=== PATIENT | female | born 1930 | race Caucasian/White ===

== ENCOUNTER → 2016-07-11 | Outpatient (REF) | payer MEDICARE, OTHER ==
[~2016-07-11] MED LIST: /AUGM875TA OR; ACET65TA; ACET65TA OR; AMBI5TAB OR; AMLO5TAB PO; ASCO25TA PO; ASPI1TAB PO; ASPI325T OR; ASPI81TA3; ASPIRIN; BENICAR PO; CIPR250T3; COLA100C PO; FLAG500T OR; FURO20TA2 OR; LEVO200T6 OR; LISI10TA4 PO; METOPROLOL TARTRATE PO; NAPR250T OR; NORCO PO; NORV5TAB OR; OMEP20TA PO; PERCOCET PO; PLAV75TA2 OR; PRIL20CA; ROBITUSSIN PO; SIMV20TA2 OR; SIMV40TA2 PO; SYNT175T PO
== END ==
LOC: M LAB REF 12:21
PROVIDERS: ATTEND Family Medicine
DX: E83.51 Hypocalcemia (principal)

== ENCOUNTER → 2016-08-15 | Outpatient (REF) | payer MEDICARE, OTHER | LOC: M LAB REF 16:24 | DX: N39.0 Urinary tract infection, site not specified (principal) ==

== ENCOUNTER → 2017-04-07 | Outpatient (REF) | payer MEDICARE, OTHER ==
[~2017-04-07] MED LIST changes: -COLA100C PO; +COLA100C5 PO
== END ==
LOC: M LAB REF 12:04
PROVIDERS: ATTEND Family Medicine
DX: E21.2 Other hyperparathyroidism (principal)

== ENCOUNTER → 2017-05-19 | Outpatient (REF) | payer MEDICARE, OTHER | LOC: M LAB REF 17:42 | PROVIDERS: ATTEND Family Medicine | DX: E21.2 Other hyperparathyroidism (principal) ==

== ENCOUNTER → 2017-06-07 | Outpatient (REF) | payer MEDICARE, OTHER | LOC: M LAB REF 17:41 | PROVIDERS: ATTEND Physician Assistant | DX: R30.0 Dysuria (principal) ==

== ENCOUNTER 2017-07-06 16:06 | Inpatient (IN) | payer MEDICARE, OTHER ==
[2017-07-06] MEDS: NS 500 ML IV (17:15)
[2017-07-06] MEDS: ONDANSETRON 4MG/2ML VIAL (J2405) IV (17:15)
[2017-07-06 17:27] LABS: BASO % 0.1 % (0.0-1.0); EOS % 0.3 % (0.0-3.0); HEMATOCRIT 45.8 % (36.0-47.0); HEMOGLOBIN 14.8 g/dl (12.0-16.0); IMMATURE GRANULOCYTE % 0.1 % (0-0); LYMPH # 1.4 10^3/uL (1.5-4.5); LYMPH % 18.6 % (24.0-44.0); MEAN CORPUSCULAR HEMOGLOBIN 30.1 pg (27.0-33.0); MEAN CORPUSCULAR HGB CONC 32.3 g/dl (32.0-36.5); MEAN CORPUSCULAR VOLUME 93.3 fl (80.0-96.0); MONO # 0.5 10^3/uL (0.0-0.8); NEUTROPHILS # 5.5 10^3/uL (1.8-7.7); NEUTROPHILS % 73.9 % (36.0-66.0); PLATELET COUNT, AUTOMATED 267 10^3/uL (150-450); RED BLOOD COUNT 4.91 10^6/uL (4.00-5.40); RED CELL DISTRIBUTION WIDTH 13.6 % (11.5-14.5); WHITE BLOOD COUNT 7.4 10^3/uL (4.0-10.0)
[2017-07-06 17:35] LABS: ALBUMIN 3.8 GM/DL (3.2-5.2); ALBUMIN/GLOBULIN RATIO 0.86 (1.00-1.93); ALKALINE PHOSPHATASE 121 U/L (45-117); ALT/SGPT 16 U/L (12-78); ANION GAP 11 MEQ/L (8-16); AST/SGOT 30 U/L (7-37); BILIRUBIN,DIRECT 0.2 MG/DL (0.0-0.2); BILIRUBIN,TOTAL 0.6 MG/DL (0.2-1.0); BLOOD UREA NITROGEN 17 MG/DL (7-18); CALCIUM LEVEL 8.2 MG/DL (8.8-10.2); CARBON DIOXIDE LEVEL 25 MEQ/L (21-32); CHLORIDE LEVEL 107 MEQ/L (98-107); CPK CREATINE PHOSPHOKINASE 118 U/L (26-192); CREATININE FOR GFR 1.12 MG/DL (0.55-1.02); GLOMERULAR FILTRATION RATE 49.1 (>32); GLUCOSE, FASTING 105 MG/DL (83-110); LIPASE 233 U/L (73-393); MB/CK RELATIVE INDEX 0.84 (< OR =4); POTASSIUM SERUM 4.1 MEQ/L (3.5-5.1); SODIUM LEVEL 143 MEQ/L (136-145); TOTAL PROTEIN 8.2 GM/DL (6.4-8.2); TROPONIN I < 0.02 NG/ML (< 0.10)
[2017-07-06] MEDS: ALBUTEROL SULFATE 2.5 MG/0.5 ML INH NEB SOLN NEB (19:22)
[2017-07-06] MEDS: MOXIFLOXACIN HCL 400 MG in APPROPRIATE DILUENT 1 EA IV (19:47)
[2017-07-06] MEDS: AZITHROMYCIN 250 MG TAB PO (20:59)
[2017-07-06] MEDS: METOPROLOL TART 25 MG TABLET PO (20:59)
[2017-07-06] MEDS: LISINOPRIL 10 MG TAB PO (20:59)
[2017-07-06] MEDS: NS 1,000 ML IV (20:59)
[2017-07-06] MEDS: SIMVASTATIN 40 MG TAB PO (21:55)
[2017-07-07] MEDS: CEFTRIAXONE SOD 1 GM in APPROPRIATE DILUENT 1 EA IV ×3 (00:44→23:31)
[2017-07-07] MEDS: LEVOTHYROXINE 137MCG TABLET (0.137MG) PO (06:11)
[2017-07-07] MEDS: ASPIRIN 81 MG CHEW TABLET PO (07:58)
[2017-07-07] MEDS: NS 1,000 ML IV ×2 (07:58→17:14)
[2017-07-07] MEDS: AZITHROMYCIN 250 MG TAB PO (07:59)
[2017-07-07] MEDS: amLODIPine 5 MG TAB PO (07:59)
[2017-07-07] MEDS: ACETAMINOPHEN TAB 650MG DOSE (2X325MG) PO ×3 (07:59→20:29)
[2017-07-07] MEDS: PANTOPRAZOLE 40MG TAB (PROTONIX) PO (08:00)
[2017-07-07] MEDS: CLOPIDOGREL 75 MG TAB PO (08:00)
[2017-07-07] MEDS: METOPROLOL TART 25 MG TABLET PO ×2 (08:00→20:30)
[2017-07-07 10:20] LABS: MEAN CORPUSCULAR HEMOGLOBIN 30.8 pg (27.0-33.0); MEAN CORPUSCULAR HGB CONC 32.3 g/dl (32.0-36.5); MEAN CORPUSCULAR VOLUME 95.4 fl (80.0-96.0); PLATELET COUNT, AUTOMATED 180 10^3/uL (150-450); RED BLOOD COUNT 3.67 10^6/uL (4.00-5.40); RED CELL DISTRIBUTION WIDTH 13.6 % (11.5-14.5); WHITE BLOOD COUNT 5.7 10^3/uL (4.0-10.0)
[2017-07-07 10:33] LABS: ERYTHROCYTE SEDIMENTATION RATE 21 mm/hr (0-42)
[2017-07-07 10:39] LABS: HEMOGLOBIN 11.3 g/dl (12.0-16.0)
[2017-07-07 10:41] LABS: ANION GAP 7 MEQ/L (8-16); BLOOD UREA NITROGEN 16 MG/DL (7-18); CALCIUM LEVEL 7.2 MG/DL (8.8-10.2); CARBON DIOXIDE LEVEL 26 MEQ/L (21-32); CHLORIDE LEVEL 111 MEQ/L (98-107); CREATININE FOR GFR 0.94 MG/DL (0.55-1.02); GLOMERULAR FILTRATION RATE > 60.0 (>32); GLUCOSE, FASTING 130 MG/DL (83-110); POTASSIUM SERUM 4.1 MEQ/L (3.5-5.1); SODIUM LEVEL 144 MEQ/L (136-145)
[2017-07-07] MEDS: guaiFENesin ER 600 MG TAB PO ×2 (11:58→20:29)
[2017-07-07] MEDS: LISINOPRIL 10 MG TAB PO (20:30)
[2017-07-07] MEDS: SIMVASTATIN 40 MG TAB PO (20:30)
[2017-07-07] MEDS: ALBUTEROL SULFATE 2.5 MG/0.5 ML INH NEB SOLN NEB (21:09)
[2017-07-08] MEDS: ACETAMINOPHEN TAB 650MG DOSE (2X325MG) PO ×3 (01:24→15:45)
[2017-07-08] MEDS: ALBUTEROL SULFATE 2.5 MG/0.5 ML INH NEB SOLN NEB ×2 (01:33→14:42)
[2017-07-08] MEDS: NS 1,000 ML IV (02:49)
[2017-07-08 05:40] LABS: HEMATOCRIT 33.3 % (36.0-47.0); HEMOGLOBIN 10.6 g/dl (12.0-16.0); MEAN CORPUSCULAR HEMOGLOBIN 30.2 pg (27.0-33.0); MEAN CORPUSCULAR HGB CONC 31.8 g/dl (32.0-36.5); MEAN CORPUSCULAR VOLUME 94.9 fl (80.0-96.0); PLATELET COUNT, AUTOMATED 153 10^3/uL (150-450); RED BLOOD COUNT 3.51 10^6/uL (4.00-5.40); RED CELL DISTRIBUTION WIDTH 13.3 % (11.5-14.5); WHITE BLOOD COUNT 4.1 10^3/uL (4.0-10.0)
[2017-07-08 06:04] LABS: ANION GAP 9 MEQ/L (8-16); BLOOD UREA NITROGEN 11 MG/DL (7-18); CALCIUM LEVEL 7.1 MG/DL (8.8-10.2); CARBON DIOXIDE LEVEL 22 MEQ/L (21-32); CHLORIDE LEVEL 114 MEQ/L (98-107); CREATININE FOR GFR 0.67 MG/DL (0.55-1.02); GLOMERULAR FILTRATION RATE > 60.0 (>32); GLUCOSE, FASTING 97 MG/DL (83-110); POTASSIUM SERUM 3.6 MEQ/L (3.5-5.1); SODIUM LEVEL 145 MEQ/L (136-145)
[2017-07-08] MEDS: LEVOTHYROXINE 137MCG TABLET (0.137MG) PO (06:11)
[2017-07-08] MEDS: ASPIRIN 81 MG CHEW TABLET PO (08:42)
[2017-07-08] MEDS: AZITHROMYCIN 250 MG TAB PO (08:42)
[2017-07-08] MEDS: METOPROLOL TART 25 MG TABLET PO ×2 (08:43→20:35)
[2017-07-08] MEDS: amLODIPine 5 MG TAB PO (08:43)
[2017-07-08] MEDS: guaiFENesin ER 600 MG TAB PO ×2 (08:43→20:35)
[2017-07-08] MEDS: CLOPIDOGREL 75 MG TAB PO (08:43)
[2017-07-08] MEDS: PANTOPRAZOLE 40MG TAB (PROTONIX) PO (08:43)
[2017-07-08] MEDS ORDERED: SLF 3 ML SYR IV (11:00)
[2017-07-08] MEDS: CEFTRIAXONE SOD 1 GM in APPROPRIATE DILUENT 1 EA IV (13:21)
[2017-07-08] MEDS: SLF 3 ML SYR IV ×2 (13:31→20:35)
[2017-07-08] MEDS: SIMVASTATIN 40 MG TAB PO (20:35)
[2017-07-08] MEDS: LISINOPRIL 10 MG TAB PO (20:35)
[2017-07-09] MEDS: CEFTRIAXONE SOD 1 GM in APPROPRIATE DILUENT 1 EA IV ×3 (00:02→23:22)
[2017-07-09] MEDS: SLF 3 ML SYR IV ×3 (06:00→20:08)
[2017-07-09] MEDS: LEVOTHYROXINE 137MCG TABLET (0.137MG) PO (06:19)
[2017-07-09 06:36] LABS: HEMATOCRIT 34.6 % (36.0-47.0); HEMOGLOBIN 11.3 g/dl (12.0-16.0); MEAN CORPUSCULAR HGB CONC 32.7 g/dl (32.0-36.5); MEAN CORPUSCULAR VOLUME 91.8 fl (80.0-96.0); PLATELET COUNT, AUTOMATED 209 10^3/uL (150-450); RED BLOOD COUNT 3.77 10^6/uL (4.00-5.40); RED CELL DISTRIBUTION WIDTH 13.2 % (11.5-14.5); WHITE BLOOD COUNT 4.6 10^3/uL (4.0-10.0)
[2017-07-09 06:48] LABS: ANION GAP 8 MEQ/L (8-16); BLOOD UREA NITROGEN 6 MG/DL (7-18); CALCIUM LEVEL 7.4 MG/DL (8.8-10.2); CARBON DIOXIDE LEVEL 24 MEQ/L (21-32); CHLORIDE LEVEL 111 MEQ/L (98-107); CREATININE FOR GFR 0.61 MG/DL (0.55-1.02); GLOMERULAR FILTRATION RATE > 60.0 (>32); GLUCOSE, FASTING 88 MG/DL (83-110); MAGNESIUM LEVEL 1.8 MG/DL (1.8-2.4); POTASSIUM SERUM 3.4 MEQ/L (3.5-5.1); SODIUM LEVEL 143 MEQ/L (136-145)
[2017-07-09] MEDS: LACTOBACILLUS ACIDOPHILUS CAP (BACID) PO ×3 (08:54→17:30)
[2017-07-09] MEDS: PANTOPRAZOLE 40MG TAB (PROTONIX) PO (08:54)
[2017-07-09] MEDS: AZITHROMYCIN 250 MG TAB PO (08:54)
[2017-07-09] MEDS: ASPIRIN 81 MG CHEW TABLET PO (08:54)
[2017-07-09] MEDS: POTASSIUM CHLORIDE 10 MEQ SR TABLET PO (08:55)
[2017-07-09] MEDS: CLOPIDOGREL 75 MG TAB PO (08:55)
[2017-07-09] MEDS: guaiFENesin ER 600 MG TAB PO ×2 (08:55→20:06)
[2017-07-09] MEDS: amLODIPine 5 MG TAB PO (08:56)
[2017-07-09] MEDS: METOPROLOL TART 25 MG TABLET PO ×2 (08:56→20:07)
[2017-07-09] MEDS: SIMVASTATIN 40 MG TAB PO (20:06)
[2017-07-09] MEDS: ACETAMINOPHEN TAB 650MG DOSE (2X325MG) PO (20:06)
[2017-07-09] MEDS: LISINOPRIL 10 MG TAB PO (20:07)
[2017-07-09] MEDS: DEXTROMETHORPHAN 5 ML SYRUP (ROBITUSSIN PEDIATRIC COUGH) PO (22:09)
[2017-07-10] MEDS: LEVOTHYROXINE 137MCG TABLET (0.137MG) PO (05:54)
[2017-07-10] MEDS: SLF 3 ML SYR IV ×3 (05:55→20:21)
[2017-07-10] MEDS: D5W/0.45% SODIUM CHLORIDE 1,000 ML IV (07:00)
[2017-07-10 07:33] LABS: HEMATOCRIT 35.1 % (36.0-47.0); HEMOGLOBIN 11.5 g/dl (12.0-16.0); MEAN CORPUSCULAR HEMOGLOBIN 30.1 pg (27.0-33.0); MEAN CORPUSCULAR HGB CONC 32.8 g/dl (32.0-36.5); MEAN CORPUSCULAR VOLUME 91.9 fl (80.0-96.0); PLATELET COUNT, AUTOMATED 231 10^3/uL (150-450); RED BLOOD COUNT 3.82 10^6/uL (4.00-5.40); RED CELL DISTRIBUTION WIDTH 13.2 % (11.5-14.5); WHITE BLOOD COUNT 4.7 10^3/uL (4.0-10.0)
[2017-07-10] MEDS: LACTOBACILLUS ACIDOPHILUS CAP (BACID) PO ×3 (07:53→17:06)
[2017-07-10] MEDS: METOPROLOL TART 25 MG TABLET PO ×2 (07:53→20:21)
[2017-07-10] MEDS: AZITHROMYCIN 250 MG TAB PO (07:54)
[2017-07-10] MEDS: ASPIRIN 81 MG CHEW TABLET PO (07:54)
[2017-07-10] MEDS: guaiFENesin ER 600 MG TAB PO ×2 (07:54→20:20)
[2017-07-10] MEDS: PANTOPRAZOLE 40MG TAB (PROTONIX) PO (07:54)
[2017-07-10] MEDS: CLOPIDOGREL 75 MG TAB PO (07:54)
[2017-07-10] MEDS: POTASSIUM CHLORIDE 10 MEQ SR TABLET PO (07:54)
[2017-07-10] MEDS: amLODIPine 5 MG TAB PO (07:55)
[2017-07-10] MEDS: ACETAMINOPHEN TAB 650MG DOSE (2X325MG) PO ×2 (07:55→23:17)
[2017-07-10 07:56] LABS: ANION GAP 7 MEQ/L (8-16); BLOOD UREA NITROGEN 6 MG/DL (7-18); CALCIUM LEVEL 7.5 MG/DL (8.8-10.2); CARBON DIOXIDE LEVEL 25 MEQ/L (21-32); CHLORIDE LEVEL 111 MEQ/L (98-107); CREATININE FOR GFR 0.62 MG/DL (0.55-1.02); GLOMERULAR FILTRATION RATE > 60.0 (>32); GLUCOSE, FASTING 93 MG/DL (83-110); POTASSIUM SERUM 3.7 MEQ/L (3.5-5.1); SODIUM LEVEL 143 MEQ/L (136-145)
[2017-07-10] MEDS ORDERED: METOCLOPRAMIDE 10 MG TAB PO (10:00)
[2017-07-10] MEDS: ONDANSETRON 4 MG TAB (S0181) PO (10:05)
[2017-07-10] MEDS: DEXTROMETHORPHAN 5 ML SYRUP (ROBITUSSIN PEDIATRIC COUGH) PO (10:28)
[2017-07-10] MEDS: CEFTRIAXONE SOD 1 GM in APPROPRIATE DILUENT 1 EA IV ×2 (11:38→23:17)
[2017-07-10] MEDS: SIMVASTATIN 40 MG TAB PO (20:20)
[2017-07-10] MEDS: LISINOPRIL 10 MG TAB PO (20:20)
[2017-07-10] MEDS: DEXTROMETHORPHAN 60MG/10ML SUSP 90ML BTL(DELSYM) PO (20:26)
[2017-07-11] MEDS: SLF 3 ML SYR IV ×3 (05:46→21:38)
[2017-07-11] MEDS: LEVOTHYROXINE 137MCG TABLET (0.137MG) PO (05:46)
[2017-07-11 06:06] LABS: HEMATOCRIT 34.3 % (36.0-47.0); HEMOGLOBIN 11.1 g/dl (12.0-16.0); MEAN CORPUSCULAR HEMOGLOBIN 29.6 pg (27.0-33.0); MEAN CORPUSCULAR HGB CONC 32.4 g/dl (32.0-36.5); MEAN CORPUSCULAR VOLUME 91.5 fl (80.0-96.0); PLATELET COUNT, AUTOMATED 275 10^3/uL (150-450); RED BLOOD COUNT 3.75 10^6/uL (4.00-5.40); RED CELL DISTRIBUTION WIDTH 13.2 % (11.5-14.5); WHITE BLOOD COUNT 5.5 10^3/uL (4.0-10.0)
[2017-07-11 06:24] LABS: ANION GAP 7 MEQ/L (8-16); BLOOD UREA NITROGEN 5 MG/DL (7-18); CALCIUM LEVEL 7.6 MG/DL (8.8-10.2); CARBON DIOXIDE LEVEL 25 MEQ/L (21-32); CHLORIDE LEVEL 112 MEQ/L (98-107); CREATININE FOR GFR 0.68 MG/DL (0.55-1.02); GLOMERULAR FILTRATION RATE > 60.0 (>32); GLUCOSE, FASTING 90 MG/DL (83-110); POTASSIUM SERUM 3.9 MEQ/L (3.5-5.1); SODIUM LEVEL 144 MEQ/L (136-145)
[2017-07-11] MEDS: ASPIRIN 81 MG CHEW TABLET PO (08:03)
[2017-07-11] MEDS: LACTOBACILLUS ACIDOPHILUS CAP (BACID) PO ×3 (08:04→18:38)
[2017-07-11] MEDS: AZITHROMYCIN 250 MG TAB PO (08:04)
[2017-07-11] MEDS: guaiFENesin ER 600 MG TAB PO ×2 (08:04→21:36)
[2017-07-11] MEDS: CLOPIDOGREL 75 MG TAB PO (08:05)
[2017-07-11] MEDS: amLODIPine 5 MG TAB PO (08:05)
[2017-07-11] MEDS: PANTOPRAZOLE 40MG TAB (PROTONIX) PO (08:05)
[2017-07-11] MEDS: METOPROLOL TART 25 MG TABLET PO ×2 (08:07→21:37)
[2017-07-11] MEDS: DEXTROMETHORPHAN 60MG/10ML SUSP 90ML BTL(DELSYM) PO (08:30)
[2017-07-11] MEDS: CEFDINIR 300 MG CAP (OMNICEF) PO ×2 (11:45→21:36)
[2017-07-11] MEDS: D5W/0.45% SODIUM CHLORIDE 1,000 ML IV (18:38)
[2017-07-11] MEDS: LISINOPRIL 10 MG TAB PO (21:37)
[2017-07-11] MEDS: SIMVASTATIN 40 MG TAB PO (21:38)
[2017-07-11] MEDS: ACETAMINOPHEN TAB 650MG DOSE (2X325MG) PO (21:38)
[2017-07-11] MEDS: BENZONATATE 100 MG CAP PO (22:57)
[2017-07-12] MEDS: LEVOTHYROXINE 137MCG TABLET (0.137MG) PO (05:47)
[2017-07-12] MEDS: SLF 3 ML SYR IV ×4 (05:48→21:47)
[2017-07-12 06:13] LABS: HEMATOCRIT 33.8 % (36.0-47.0); HEMOGLOBIN 10.8 g/dl (12.0-16.0); MEAN CORPUSCULAR HEMOGLOBIN 29.8 pg (27.0-33.0); MEAN CORPUSCULAR VOLUME 93.1 fl (80.0-96.0); PLATELET COUNT, AUTOMATED 281 10^3/uL (150-450); RED BLOOD COUNT 3.63 10^6/uL (4.00-5.40); RED CELL DISTRIBUTION WIDTH 13.2 % (11.5-14.5); WHITE BLOOD COUNT 4.9 10^3/uL (4.0-10.0)
[2017-07-12 06:33] LABS: ANION GAP 6 MEQ/L (8-16); BLOOD UREA NITROGEN 6 MG/DL (7-18); CALCIUM LEVEL 7.4 MG/DL (8.8-10.2); CARBON DIOXIDE LEVEL 26 MEQ/L (21-32); CHLORIDE LEVEL 112 MEQ/L (98-107); CREATININE FOR GFR 0.67 MG/DL (0.55-1.02); GLOMERULAR FILTRATION RATE > 60.0 (>32); GLUCOSE, FASTING 108 MG/DL (83-110); POTASSIUM SERUM 3.7 MEQ/L (3.5-5.1); SODIUM LEVEL 144 MEQ/L (136-145)
[2017-07-12] MEDS: LACTOBACILLUS ACIDOPHILUS CAP (BACID) PO ×3 (08:54→17:28)
[2017-07-12] MEDS: ASPIRIN 81 MG CHEW TABLET PO (08:54)
[2017-07-12] MEDS: PANTOPRAZOLE 40MG TAB (PROTONIX) PO (08:54)
[2017-07-12] MEDS: CEFDINIR 300 MG CAP (OMNICEF) PO ×2 (08:56→20:13)
[2017-07-12] MEDS: CLOPIDOGREL 75 MG TAB PO (08:56)
[2017-07-12] MEDS: amLODIPine 5 MG TAB PO (08:56)
[2017-07-12] MEDS: AZITHROMYCIN 250 MG TAB PO (08:56)
[2017-07-12] MEDS: guaiFENesin ER 600 MG TAB PO ×2 (08:57→20:14)
[2017-07-12] MEDS: METOPROLOL TART 25 MG TABLET PO ×2 (08:58→20:15)
[2017-07-12] MEDS: BENZONATATE 100 MG CAP PO ×2 (09:01→20:13)
[2017-07-12] MEDS: ACETAMINOPHEN TAB 650MG DOSE (2X325MG) PO ×2 (17:29→20:14)
[2017-07-12] MEDS: SIMVASTATIN 40 MG TAB PO (20:14)
[2017-07-12] MEDS: LISINOPRIL 10 MG TAB PO (20:14)
[2017-07-13 05:35] LABS: HEMATOCRIT 33.3 % (36.0-47.0); MEAN CORPUSCULAR HEMOGLOBIN 30.6 pg (27.0-33.0); MEAN CORPUSCULAR VOLUME 92.8 fl (80.0-96.0); PLATELET COUNT, AUTOMATED 295 10^3/uL (150-450); RED BLOOD COUNT 3.59 10^6/uL (4.00-5.40); RED CELL DISTRIBUTION WIDTH 13.3 % (11.5-14.5); WHITE BLOOD COUNT 5.3 10^3/uL (4.0-10.0)
[2017-07-13] MEDS: SLF 3 ML SYR IV ×3 (05:47→20:14)
[2017-07-13] MEDS: LEVOTHYROXINE 137MCG TABLET (0.137MG) PO (05:47)
[2017-07-13 05:50] LABS: ANION GAP 4 MEQ/L (8-16); BLOOD UREA NITROGEN 9 MG/DL (7-18); CALCIUM LEVEL 7.9 MG/DL (8.8-10.2); CARBON DIOXIDE LEVEL 28 MEQ/L (21-32); CHLORIDE LEVEL 111 MEQ/L (98-107); CREATININE FOR GFR 0.67 MG/DL (0.55-1.02); GLOMERULAR FILTRATION RATE > 60.0 (>32); GLUCOSE, FASTING 88 MG/DL (83-110); SODIUM LEVEL 143 MEQ/L (136-145)
[2017-07-13] MEDS: METOPROLOL TART 25 MG TABLET PO ×2 (08:32→20:14)
[2017-07-13] MEDS: LACTOBACILLUS ACIDOPHILUS CAP (BACID) PO ×3 (08:32→18:14)
[2017-07-13] MEDS: amLODIPine 5 MG TAB PO (08:32)
[2017-07-13] MEDS: ASPIRIN 81 MG CHEW TABLET PO (08:32)
[2017-07-13] MEDS: guaiFENesin ER 600 MG TAB PO ×2 (08:32→20:13)
[2017-07-13] MEDS: AZITHROMYCIN 250 MG TAB PO (08:33)
[2017-07-13] MEDS: CEFDINIR 300 MG CAP (OMNICEF) PO (08:33)
[2017-07-13] MEDS: CLOPIDOGREL 75 MG TAB PO (08:33)
[2017-07-13] MEDS: PANTOPRAZOLE 40MG TAB (PROTONIX) PO (08:33)
[2017-07-13] MEDS: BENZONATATE 100 MG CAP PO (11:37)
[2017-07-13] MEDS: ACETAMINOPHEN TAB 650MG DOSE (2X325MG) PO (12:43)
[2017-07-13] MEDS: SIMVASTATIN 40 MG TAB PO (20:13)
[2017-07-13] MEDS: LISINOPRIL 10 MG TAB PO (20:14)
[2017-07-14] MEDS: LEVOTHYROXINE 137MCG TABLET (0.137MG) PO (06:01)
[2017-07-14] MEDS: SLF 3 ML SYR IV (06:01)
[2017-07-14 06:21] LABS: HEMATOCRIT 34.9 % (36.0-47.0); HEMOGLOBIN 11.1 g/dl (12.0-16.0); MEAN CORPUSCULAR HEMOGLOBIN 29.7 pg (27.0-33.0); MEAN CORPUSCULAR HGB CONC 31.8 g/dl (32.0-36.5); MEAN CORPUSCULAR VOLUME 93.3 fl (80.0-96.0); PLATELET COUNT, AUTOMATED 341 10^3/uL (150-450); RED BLOOD COUNT 3.74 10^6/uL (4.00-5.40); RED CELL DISTRIBUTION WIDTH 13.3 % (11.5-14.5); WHITE BLOOD COUNT 6.5 10^3/uL (4.0-10.0)
[2017-07-14 06:45] LABS: ANION GAP 7 MEQ/L (8-16); BLOOD UREA NITROGEN 9 MG/DL (7-18); CALCIUM LEVEL 7.7 MG/DL (8.8-10.2); CARBON DIOXIDE LEVEL 26 MEQ/L (21-32); CHLORIDE LEVEL 110 MEQ/L (98-107); GLOMERULAR FILTRATION RATE > 60.0 (>32); GLUCOSE, FASTING 86 MG/DL (83-110); POTASSIUM SERUM 3.9 MEQ/L (3.5-5.1); SODIUM LEVEL 143 MEQ/L (136-145)
[2017-07-14] MEDS: LACTOBACILLUS ACIDOPHILUS CAP (BACID) PO (08:17)
[2017-07-14] MEDS: guaiFENesin ER 600 MG TAB PO (08:17)
[2017-07-14] MEDS: METOPROLOL TART 25 MG TABLET PO (08:18)
[2017-07-14] MEDS: CLOPIDOGREL 75 MG TAB PO (08:18)
[2017-07-14] MEDS: amLODIPine 5 MG TAB PO (08:18)
[2017-07-14] MEDS: ASPIRIN 81 MG CHEW TABLET PO (08:18)
[2017-07-14] MEDS: PANTOPRAZOLE 40MG TAB (PROTONIX) PO (08:18)
[2017-07-14 09:14] LABS: MAGNESIUM LEVEL 2.1 MG/DL (1.8-2.4)
== END 2017-07-14 11:55 | disposition home or self-care (01) | DRG 195 ==
LOC: M MSPAV 07-08 11:43 → M ED 16:06 → M ED INP 19:36 → M PCU 23:45
DX: J18.9 Pneumonia, unspecified organism (principal); R06.03 Acute respiratory distress; I25.10 Atherosclerotic heart disease of native coronary artery without angina pectoris; E03.9 Hypothyroidism, unspecified; I10 Essential (primary) hypertension; Z95.5 Presence of coronary angioplasty implant and graft; Z79.02 Long term (current) use of antithrombotics/antiplatelets; Z79.899 Other long term (current) drug therapy; Z79.82 Long term (current) use of aspirin

== ENCOUNTER 2017-08-19 12:41 | Emergency (ER) | payer MEDICARE, OTHER ==
[2017-08-19] MEDS: IPRATROPIUM 0.5MG/ALBUTEROL 2.5MG INH SOL UD 3ML (DUONEB)(J7620) NEB (13:15)
[2017-08-19 14:02] LABS: BASO % 0.5 % (0.0-1.0); EOS # 0.1 10^3/uL (0.0-0.50); EOS % 2.1 % (0.0-3.0); HEMATOCRIT 38.9 % (36.0-47.0); HEMOGLOBIN 12.6 g/dl (12.0-16.0); IMMATURE GRANULOCYTE % 0.3 % (0-3.0); LYMPH # 1.5 10^3/uL (1.5-4.5); LYMPH % 24.8 % (24.0-44.0); MEAN CORPUSCULAR HEMOGLOBIN 29.9 pg (27.0-33.0); MEAN CORPUSCULAR HGB CONC 32.4 g/dl (32.0-36.5); MEAN CORPUSCULAR VOLUME 92.2 fl (80.0-96.0); MONO # 0.6 10^3/uL (0.0-0.8); MONO % 9.5 % (0.0-5.0); NEUTROPHILS # 3.8 10^3/uL (1.8-7.7); NEUTROPHILS % 62.8 % (36.0-66.0); PLATELET COUNT, AUTOMATED 289 10^3/uL (150-450); RED BLOOD COUNT 4.22 10^6/uL (4.00-5.40); RED CELL DISTRIBUTION WIDTH 13.8 % (11.5-14.5); WHITE BLOOD COUNT 6.1 10^3/uL (4.0-10.0)
[2017-08-19 14:24] LABS: ALBUMIN 3.7 GM/DL (3.2-5.2); ALBUMIN/GLOBULIN RATIO 1.03 (1.00-1.93); ALKALINE PHOSPHATASE 155 U/L (45-117); ALT/SGPT 15 U/L (12-78); AST/SGOT 22 U/L (7-37); BILIRUBIN,DIRECT 0.1 MG/DL (0.0-0.2); BILIRUBIN,TOTAL 0.6 MG/DL (0.2-1.0); NT-PRO BNP 294 PG/ML (<450); TOTAL PROTEIN 7.3 GM/DL (6.4-8.2)
[2017-08-19 14:27] LABS: ANION GAP 9 MEQ/L (8-16); BLOOD UREA NITROGEN 13 MG/DL (7-18); CALCIUM LEVEL 8.4 MG/DL (8.8-10.2); CARBON DIOXIDE LEVEL 26 MEQ/L (21-32); CHLORIDE LEVEL 107 MEQ/L (98-107); CPK CREATINE PHOSPHOKINASE 64 U/L (26-192); GLOMERULAR FILTRATION RATE > 60.0 (>32); GLUCOSE, FASTING 118 MG/DL (70-100); MB/CK RELATIVE INDEX 1.56 (< OR =4); POTASSIUM SERUM 3.5 MEQ/L (3.5-5.1); SODIUM LEVEL 142 MEQ/L (136-145); TROPONIN I < 0.02 NG/ML (< 0.10)
[2017-08-19] MEDS ORDERED: ISOVUE-370 76% 100ML VIAL (Q9967) As Ordered (15:33)
== END 2017-08-19 17:02 | disposition home or self-care (01) ==
LOC: M ED 12:41
DX: R05 Cough (principal); R06.00 Dyspnea, unspecified; B97.4 Respiratory syncytial virus as the cause of diseases classified elsewhere; I10 Essential (primary) hypertension; I25.10 Atherosclerotic heart disease of native coronary artery without angina pectoris; N28.9 Disorder of kidney and ureter, unspecified; I44.7 Left bundle-branch block, unspecified; Z95.0 Presence of cardiac pacemaker; Z79.899 Other long term (current) drug therapy; Z79.82 Long term (current) use of aspirin; Z79.890 Hormone replacement therapy; Z88.5 Allergy status to narcotic agent
CPT/HCPCS: Q9967

== ENCOUNTER → 2018-03-16 | Outpatient (CLI) | payer MEDICARE, OTHER | LOC: M WHC 10:22 | DX: Z13.820 Encounter for screening for osteoporosis (principal); Z78.0 Asymptomatic menopausal state | CPT/HCPCS: 77080 ==

== ENCOUNTER 2018-04-09 09:39 | Emergency (ER) | payer MEDICARE, OTHER ==
[2018-04-09] MEDS: LIDOCAINE 5% (LIDODERM) PATCH TD (10:51)
[2018-04-09] MEDS: NORCO, ANEXSIA 5/325MG TABLET (HYDROcodone/ACETAMINOPHEN) PO (10:53)
[2018-04-09 11:06] LABS: KETONE, URINE AUTO RFX NEGATIVE (NEGATIVE); LEUKOCYTE ESTERASE UR AUTO RFX NEGATIVE (NEGATIVE); NITRITE, URINE AUTO RFX NEGATIVE (NEGATIVE); RBC, URINE AUTO RFX 2 /HPF (0-3); SPECIFIC GRAVITY UR AUTO RFX 1.006 (1.002-1.035); SQUAM EPITHELIAL CELL UR AURFX 0 /HPF (0-6); WBC, URINE AUTO RFX 2 /HPF (0-3)
[2018-04-09] MEDS: predniSONE 20 MG TAB PO (11:36)
[2018-04-09] MEDS ORDERED: **NOTE PATIENT COMMENT** MISC XX (21:00)
== END 2018-04-09 11:57 | disposition home or self-care (01) ==
LOC: M ED 09:39
DX: M54.16 Radiculopathy, lumbar region (principal); I10 Essential (primary) hypertension; K21.9 Gastro-esophageal reflux disease without esophagitis
CPT/HCPCS: 72131

== ENCOUNTER 2018-04-27 11:42 | Emergency (ER) | payer MEDICARE, OTHER | END 2018-04-27 12:31 | disposition home or self-care (01) | LOC: M ED 11:42 | DX: M54.40 Lumbago with sciatica, unspecified side (principal); I10 Essential (primary) hypertension; I25.10 Atherosclerotic heart disease of native coronary artery without angina pectoris; I25.2 Old myocardial infarction | CPT/HCPCS: 99282 ==

== ENCOUNTER 2018-05-07 10:17 | Emergency (ER) | payer MEDICARE, OTHER ==
[2018-05-07 11:02] LABS: KETONE, URINE AUTO RFX NEGATIVE (NEGATIVE); LEUKOCYTE ESTERASE UR AUTO RFX 3+ (NEGATIVE); MUCUS, URINE RFX SMALL (NEGATIVE); NITRITE, URINE AUTO RFX NEGATIVE (NEGATIVE); RBC, URINE AUTO RFX 0 /HPF (0-3); SPECIFIC GRAVITY UR AUTO RFX 1.016 (1.002-1.035); SQUAM EPITHELIAL CELL UR AURFX 4 /HPF (0-6); WBC, URINE AUTO RFX 45 /HPF (0-3)
[2018-05-07 11:39] LABS: BASO % 0.4 % (0.0-1.0); EOS # 0.3 10^3/uL (0.0-0.50); EOS % 3.3 % (0.0-3.0); HEMATOCRIT 38.8 % (36.0-47.0); HEMOGLOBIN 12.5 g/dl (12.0-15.5); IMMATURE GRANULOCYTE % 0.3 % (0-3.0); LYMPH # 1.4 10^3/uL (1.5-4.5); MEAN CORPUSCULAR HEMOGLOBIN 31.4 pg (27.0-33.0); MEAN CORPUSCULAR HGB CONC 32.2 g/dl (32.0-36.5); MEAN CORPUSCULAR VOLUME 97.5 fl (80.0-96.0); MONO # 0.8 10^3/uL (0.0-0.8); MONO % 10.2 % (0.0-5.0); NEUTROPHILS # 5.1 10^3/uL (1.8-7.7); NEUTROPHILS % 67.8 % (36.0-66.0); PLATELET COUNT, AUTOMATED 374 10^3/uL (150-450); RED BLOOD COUNT 3.98 10^6/uL (4.00-5.40); RED CELL DISTRIBUTION WIDTH 13.5 % (11.5-14.5); WHITE BLOOD COUNT 7.5 10^3/uL (4.0-10.0)
[2018-05-07] MEDS: ONDANSETRON 4MG/2ML VIAL (J2405) IV (11:40)
[2018-05-07] MEDS: NS 1,000 ML IV (11:40)
[2018-05-07 11:57] LABS: ALBUMIN 3.2 GM/DL (3.2-5.2); ALBUMIN/GLOBULIN RATIO 1.03 (1.00-1.93); ALKALINE PHOSPHATASE 184 U/L (45-117); ALT/SGPT 16 U/L (12-78); ANION GAP 10 MEQ/L (8-16); AST/SGOT 16 U/L (7-37); BILIRUBIN,TOTAL 0.6 MG/DL (0.2-1.0); BLOOD UREA NITROGEN 17 MG/DL (7-18); CALCIUM LEVEL 8.3 MG/DL (8.8-10.2); CARBON DIOXIDE LEVEL 24 MEQ/L (21-32); CHLORIDE LEVEL 108 MEQ/L (98-107); CK-MB VALUE MASS < 1.0 NG/ML (<3.6); CPK CREATINE PHOSPHOKINASE 49 U/L (26-192); CREATININE FOR GFR 1.46 MG/DL (0.55-1.30); GLOMERULAR FILTRATION RATE 36.1 (>32); GLUCOSE, FASTING 120 MG/DL (70-100); LIPASE 118 U/L (73-393); MB/CK RELATIVE INDEX 2.04 (< OR =4); POTASSIUM SERUM 4.8 MEQ/L (3.5-5.1); SODIUM LEVEL 142 MEQ/L (136-145); TOTAL PROTEIN 6.3 GM/DL (6.4-8.2); TROPONIN I < 0.02 NG/ML (< 0.10)
[2018-05-07 12:01] LABS: INFLUENZA A AMPLIFICATION NEGATIVE (NEGATIVE); INFLUENZA B AMPLIFICATION NEGATIVE (NEGATIVE)
[2018-05-07] MEDS: traMADol 50 MG TAB PO (13:00)
== END 2018-05-07 13:22 | disposition home or self-care (01) ==
LOC: M ED 10:17
DX: N39.0 Urinary tract infection, site not specified (principal); Z95.0 Presence of cardiac pacemaker; I45.10 Unspecified right bundle-branch block; I44.4 Left anterior fascicular block; I25.10 Atherosclerotic heart disease of native coronary artery without angina pectoris; I25.2 Old myocardial infarction; I10 Essential (primary) hypertension; E03.9 Hypothyroidism, unspecified; F41.9 Anxiety disorder, unspecified; D51.0 Vitamin B12 deficiency anemia due to intrinsic factor deficiency; K57.90 Diverticulosis of intestine, part unspecified, without perforation or abscess without bleeding; Z95.5 Presence of coronary angioplasty implant and graft; Z95.1 Presence of aortocoronary bypass graft; Z85.828 Personal history of other malignant neoplasm of skin; Z87.891 Personal history of nicotine dependence; Z79.82 Long term (current) use of aspirin; Z79.899 Other long term (current) drug therapy; Z88.5 Allergy status to narcotic agent
CPT/HCPCS: J2405

== ENCOUNTER 2018-05-25 02:16 | Observation (INO) | payer MEDICARE, OTHER ==
[2018-05-25 04:45] LABS: BASO % 0.3 % (0.0-1.0); EOS # 0.2 10^3/uL (0.0-0.50); EOS % 1.5 % (0.0-3.0); HEMATOCRIT 38.7 % (36.0-47.0); HEMOGLOBIN 12.4 g/dl (12.0-15.5); IMMATURE GRANULOCYTE % 0.5 % (0-3.0); LYMPH # 1.4 10^3/uL (1.5-4.5); LYMPH % 14.2 % (24.0-44.0); MEAN CORPUSCULAR VOLUME 96.8 fl (80.0-96.0); MONO # 0.7 10^3/uL (0.0-0.8); MONO % 6.5 % (0.0-5.0); NEUTROPHILS # 7.8 10^3/uL (1.8-7.7); PLATELET COUNT, AUTOMATED 315 10^3/uL (150-450); RED CELL DISTRIBUTION WIDTH 13.2 % (11.5-14.5); WHITE BLOOD COUNT 10.1 10^3/uL (4.0-10.0)
[2018-05-25] MEDS: NS 1,000 ML IV ×4 (04:48→06:11)
[2018-05-25] MEDS: METOCLOPRAMIDE INJ 10MG/2ML VIAL (J2765) IV ×2 (04:48)
[2018-05-25 05:07] LABS: ALBUMIN 3.2 GM/DL (3.2-5.2); ALBUMIN/GLOBULIN RATIO 1.03 (1.00-1.93); ALKALINE PHOSPHATASE 370 U/L (45-117); ALT/SGPT 31 U/L (12-78); ANION GAP 9 MEQ/L (8-16); AST/SGOT 40 U/L (7-37); BILIRUBIN,DIRECT 0.3 MG/DL (0.0-0.2); BILIRUBIN,TOTAL 0.7 MG/DL (0.2-1.0); BLOOD UREA NITROGEN 33 MG/DL (7-18); CALCIUM LEVEL 8.5 MG/DL (8.8-10.2); CARBON DIOXIDE LEVEL 20 MEQ/L (21-32); CHLORIDE LEVEL 111 MEQ/L (98-107); CREATININE FOR GFR 1.25 MG/DL (0.55-1.30); GLOMERULAR FILTRATION RATE 43.2 (>32); GLUCOSE, FASTING 103 MG/DL (70-100); LIPASE 87 U/L (73-393); POTASSIUM SERUM 5.1 MEQ/L (3.5-5.1); SODIUM LEVEL 140 MEQ/L (136-145); TOTAL PROTEIN 6.3 GM/DL (6.4-8.2)
[2018-05-25 05:14] LABS: T UPTAKE 36 % (30-39); THYROID STIMULATING HORMONE 0.055 uIU/ML (0.358-3.740); THYROXINE (T4) 13.8 UG/DL (4.5-12.0)
[2018-05-25] MEDS ORDERED: ONDANSETRON 4MG/2ML VIAL (J2405) IV ×2 (05:30)
[2018-05-25] MEDS ORDERED: ACETAMINOPHEN TAB 650MG DOSE (2X325MG) PO ×2 (05:30)
[2018-05-25] MEDS: LEVOTHYROXINE 137MCG TABLET (0.137MG) PO ×2 (06:11)
[2018-05-25] MEDS: HEPARIN SOD (PORCINE) 5000 UNITS/ML VIAL SC ×6 (06:12→20:35)
[2018-05-25] MEDS: ASPIRIN 81 MG ENTERIC TAB PO ×2 (08:03)
[2018-05-25] MEDS: CLOPIDOGREL 75 MG TAB PO ×2 (08:03)
[2018-05-25] MEDS: METOPROLOL TART 12.5 MG PER 1/2 TAB PO ×4 (08:03→20:34)
[2018-05-25] MEDS: NORCO, ANEXSIA 5/325MG TABLET (HYDROcodone/ACETAMINOPHEN) PO ×2 (18:33)
[2018-05-25] MEDS: SIMVASTATIN 40 MG TAB PO ×2 (20:34)
[2018-05-25] MEDS: LISINOPRIL 5 MG TAB PO ×2 (20:34)
[2018-05-25 21:11] LABS: APPEARANCE, URINE CLEAR (CLEAR); BACTERIA, URINE AUTO NEGATIVE (NEGATIVE); BILIRUBIN, URINE AUTO NEGATIVE (NEGATIVE); BLOOD, URINE BLOOD NEGATIVE (NEGATIVE); COLOR, URINE YELLOW (YELLOW); GLUCOSE, URINE (UA) AUTO NEGATIVE (NEGATIVE); KETONE, URINE AUTO NEGATIVE (NEGATIVE); LEUKOCYTE ESTERASE, URINE AUTO TRACE (NEGATIVE); MUCUS, URINE SMALL (NEGATIVE); NITRITE, URINE AUTO NEGATIVE (NEGATIVE); PROTEIN, URINE AUTO NEGATIVE (NEGATIVE); RBC, URINE AUTO 4 /HPF (0-3); SPECIFIC GRAVITY URINE AUTO 1.016 (1.002-1.035); SQUAMOUS EPITHELIAL CELL UR AU 0 /HPF (0-6); WBC, URINE AUTO 12 /HPF (0-3)
[2018-05-26] MEDS: NS 1,000 ML IV ×2 (03:51)
[2018-05-26] MEDS: NORCO, ANEXSIA 5/325MG TABLET (HYDROcodone/ACETAMINOPHEN) PO ×4 (03:52→19:24)
[2018-05-26] MEDS: LEVOTHYROXINE 100MCG TABLET (0.1MG) PO ×2 (05:37)
[2018-05-26] MEDS: HEPARIN SOD (PORCINE) 5000 UNITS/ML VIAL SC ×6 (05:38→21:18)
[2018-05-26] MEDS ORDERED: LEVOTHYROXINE 125MCG TABLET (0.125MG) PO ×2 (06:00)
[2018-05-26 06:15] LABS: HEMATOCRIT 32.7 % (36.0-47.0); MEAN CORPUSCULAR HEMOGLOBIN 30.2 pg (27.0-33.0); MEAN CORPUSCULAR HGB CONC 31.5 g/dl (32.0-36.5); MEAN CORPUSCULAR VOLUME 95.9 fl (80.0-96.0); PLATELET COUNT, AUTOMATED 272 10^3/uL (150-450); RED BLOOD COUNT 3.41 10^6/uL (4.00-5.40); RED CELL DISTRIBUTION WIDTH 13.3 % (11.5-14.5); WHITE BLOOD COUNT 6.1 10^3/uL (4.0-10.0)
[2018-05-26 06:18] LABS: HEMOGLOBIN 10.3 g/dl (12.0-15.5)
[2018-05-26 06:40] LABS: ANION GAP 5 MEQ/L (8-16); BLOOD UREA NITROGEN 23 MG/DL (7-18); CALCIUM LEVEL 7.7 MG/DL (8.8-10.2); CARBON DIOXIDE LEVEL 23 MEQ/L (21-32); CHLORIDE LEVEL 116 MEQ/L (98-107); CREATININE FOR GFR 1.04 MG/DL (0.55-1.30); GLOMERULAR FILTRATION RATE 53.4 (>32); GLUCOSE, FASTING 106 MG/DL (70-100); POTASSIUM SERUM 4.5 MEQ/L (3.5-5.1); SODIUM LEVEL 144 MEQ/L (136-145)
[2018-05-26] MEDS: ASPIRIN 81 MG ENTERIC TAB PO ×2 (08:47)
[2018-05-26] MEDS: CLOPIDOGREL 75 MG TAB PO ×2 (08:47)
[2018-05-26] MEDS: METOPROLOL TART 12.5 MG PER 1/2 TAB PO ×4 (08:49→21:18)
[2018-05-26] MEDS: LISINOPRIL 5 MG TAB PO ×2 (21:17)
[2018-05-26] MEDS: SIMVASTATIN 40 MG TAB PO ×2 (21:18)
[2018-05-27] MEDS: NS 1,000 ML IV ×2 (00:37)
[2018-05-27] MEDS: HEPARIN SOD (PORCINE) 5000 UNITS/ML VIAL SC ×2 (05:28)
[2018-05-27] MEDS: LEVOTHYROXINE 100MCG TABLET (0.1MG) PO ×2 (05:28)
[2018-05-27] MEDS: CLOPIDOGREL 75 MG TAB PO ×2 (07:59)
[2018-05-27] MEDS: ASPIRIN 81 MG ENTERIC TAB PO ×2 (07:59)
[2018-05-27] MEDS: METOPROLOL TART 12.5 MG PER 1/2 TAB PO ×2 (08:00)
== END 2018-05-27 11:52 | disposition home or self-care (01) ==
LOC: M ED 02:16 → M ED INP 05:19 → M MSPAV 06:57
DX: R19.7 Diarrhea, unspecified (principal); R11.2 Nausea with vomiting, unspecified; R42 Dizziness and giddiness; D72.829 Elevated white blood cell count, unspecified; D64.9 Anemia, unspecified; I25.10 Atherosclerotic heart disease of native coronary artery without angina pectoris; I44.7 Left bundle-branch block, unspecified; I71.4 Abdominal aortic aneurysm, without rupture; I10 Essential (primary) hypertension; E78.5 Hyperlipidemia, unspecified; Z79.01 Long term (current) use of anticoagulants; Z79.899 Other long term (current) drug therapy; Z79.82 Long term (current) use of aspirin
CPT/HCPCS: J2765

== ENCOUNTER → 2018-06-04 | Outpatient (CLI) | payer MEDICARE, OTHER ==
[2018-06-04 09:31] LABS: HEMATOCRIT 38.7 % (36.0-47.0); HEMOGLOBIN 12.2 g/dl (12.0-15.5); MEAN CORPUSCULAR HEMOGLOBIN 30.7 pg (27.0-33.0); MEAN CORPUSCULAR HGB CONC 31.5 g/dl (32.0-36.5); MEAN CORPUSCULAR VOLUME 97.5 fl (80.0-96.0); PLATELET COUNT, AUTOMATED 428 10^3/uL (150-450); RED BLOOD COUNT 3.97 10^6/uL (4.00-5.40); RED CELL DISTRIBUTION WIDTH 13.9 % (11.5-14.5); WHITE BLOOD COUNT 7.9 10^3/uL (4.0-10.0)
[2018-06-04 09:41] LABS: ALBUMIN 3.1 GM/DL (3.2-5.2); ALKALINE PHOSPHATASE 282 U/L (45-117); ALT/SGPT 21 U/L (12-78); ANION GAP 9 MEQ/L (8-16); AST/SGOT 26 U/L (7-37); BILIRUBIN,TOTAL 0.5 MG/DL (0.2-1.0); BLOOD UREA NITROGEN 25 MG/DL (7-18); CALCIUM LEVEL 8.1 MG/DL (8.8-10.2); CARBON DIOXIDE LEVEL 25 MEQ/L (21-32); CHLORIDE LEVEL 110 MEQ/L (98-107); CHOLESTEROL LEVEL 89 MG/DL (<200); CHOLESTEROL RISK RATIO 4.944 (<5); CREATININE FOR GFR 1.49 MG/DL (0.55-1.30); GLOMERULAR FILTRATION RATE 35.2 (>32); GLUCOSE, FASTING 92 MG/DL (70-100); HDL CHOLESTEROL 18 MG/DL (>40); LDL CHOLESTEROL 42 MG/DL (<100); NON-HDL-C 71 MG/DL; POTASSIUM SERUM 4.4 MEQ/L (3.5-5.1); SODIUM LEVEL 144 MEQ/L (136-145); THYROID STIMULATING HORMONE 0.421 uIU/ML (0.358-3.740); THYROXINE (T4) 12.4 UG/DL (4.5-12.0); TOTAL PROTEIN 6.2 GM/DL (6.4-8.2); TRIGLYCERIDES LEVEL 146 MG/DL (<150)
[2018-06-04 09:54] LABS: TOTAL 25(OH) VITAMIN D 22.4 NG/ML (30.0-100.0)
[2018-06-04 09:55] LABS: TOTAL T3 93.8 NG/DL (60.0-181.0)
[2018-06-04 10:05] LABS: ERYTHROCYTE SEDIMENTATION RATE 9 mm/hr (0-42)
[2018-06-04 11:11] LABS: ESTIMATED AVERAGE GLUCOSE 114 MG/DL (60-110); HEMOGLOBIN A1c 5.6 %
== END ==
LOC: M RAD 07:54
DX: Z12.31 Encounter for screening mammogram for malignant neoplasm of breast (principal); R92.1 Mammographic calcification found on diagnostic imaging of breast; Z95.0 Presence of cardiac pacemaker; Z78.0 Asymptomatic menopausal state; D64.9 Anemia, unspecified; R53.83 Other fatigue; E03.9 Hypothyroidism, unspecified
CPT/HCPCS: 71046

== ENCOUNTER → 2018-06-09 | Outpatient (CLI) | payer MEDICARE, OTHER ==
[~2018-06-09] MED LIST changes: -/AUGM875TA OR; -ACET65TA; -ACET65TA OR; -AMBI5TAB OR; -AMLO5TAB PO; -ASCO25TA PO; -ASPI1TAB PO; -ASPI325T OR; -ASPI81TA3; -ASPIRIN; -BENICAR PO; -CIPR250T3; -COLA100C5 PO; -FLAG500T OR; -FURO20TA2 OR; +GASTROGRAFIN SOLUTION 30ML (Q9963) As Ordered; +ISOVUE-370 76% 100ML VIAL (Q9967) As Ordered; -LEVO200T6 OR; -LISI10TA4 PO; -METOPROLOL TARTRATE PO; -NAPR250T OR; -NORCO PO; -NORV5TAB OR; -OMEP20TA PO; -PERCOCET PO; -PLAV75TA2 OR; -PRIL20CA; -ROBITUSSIN PO; -SIMV20TA2 OR; -SIMV40TA2 PO; -SYNT175T PO
== END ==
LOC: M RAD 13:13
DX: I71.4 Abdominal aortic aneurysm, without rupture (principal); R14.0 Abdominal distension (gaseous); M51.87 Other intervertebral disc disorders, lumbosacral region; M16.0 Bilateral primary osteoarthritis of hip; Z90.49 Acquired absence of other specified parts of digestive tract
CPT/HCPCS: Q9963

== ENCOUNTER → 2018-07-13 | Outpatient (CLI) | payer MEDICARE, OTHER ==
[~2018-07-13] MED LIST changes: +/AUGM875TA OR; +ACET65TA; +ACET65TA OR; +AMBI5TAB OR; +AMLO5TAB PO; +AMLO5TAB6; +ASCO25TA PO; +ASPI1TAB PO; +ASPI325T OR; +ASPI81CH PO; +ASPI81TA3; +ASPIRIN; +BENICAR PO; +BENZ-18 PO; +CIPR250T3; +CLOP75TA2 PO; +COLA100C5 PO; +DICL1GEL3; +ENSULIQ10 PO; +FLAG500T OR; +FURO20TA2 OR; -GASTROGRAFIN SOLUTION 30ML (Q9963) As Ordered; +HYDR-3363; -ISOVUE-370 76% 100ML VIAL (Q9967) As Ordered; +LEVO100T5 PO; +LEVO137T2 PO; +LEVO200T6 OR; +LIDO5DIS41 TOP; +LISI-542 PO; +LISI10TA4 PO; +MACR100C43 PO; +METO1TAB87 PO; +METOPROLOL TARTRATE PO; +NAPR250T OR; +NORCO PO; +NORCOTAB PO; +NORV5TAB PO; +OMEP20TA PO; +PERCOCET PO; +PLAV75TA2 OR; +PRED10TA2 PO; +PRIL20CA; +ROBITUSSIN PO; +SIMV20TA2 OR; +SIMV40TA2; +SIMV40TA2 PO; +SYNT175T PO; +VENTAER IN; +VOLT1GEL15 TD; +VOLT1GEL15 TOP; +ZOCO40TA PO; +ZOFR4TAB14 PO
--- NOTE | 2018-07-13 19:20 | REP ---
LEFT WRIST, FOUR VIEWS: HISTORY: Pain. There is no acute fracture or dislocation. There is narrowing of the lateral carpal joint spaces. An ossified density is present adjacent to the ulnar styloid process. This may represent an old avulsion fracture fragment, ligamentous or tendon calcification. Soft tissue swelling is present. IMPRESSION:There is no acute fracture or dislocation. Electronically Signed by Mariano Kingston MD 07/13/2018 07:26 P
--- NOTE | 2018-07-13 19:21 | REP ---
LEFT HAND, FOUR VIEWS: HISTORY: Pain. There is no acute fracture or dislocation. There is narrowing of the lateral carpal joint spaces. An ossified density is present adjacent to the ulnar styloid process. This may represent an old avulsion fracture fragment, ligamentous or tendon calcification. Soft tissue swelling is present. IMPRESSION: There is no acute fracture or dislocation. Electronically Signed by Mariano Kingston MD 07/13/2018 07:26 P
== END ==
LOC: M WUC 17:53
PROVIDERS: ATTEND Physician Assistant
DX: M25.532 Pain in left wrist (principal)

== ENCOUNTER → 2018-12-10 | Outpatient (CLI) | payer MEDICARE, OTHER ==
[~2018-12-10] MED LIST changes: -ASCO25TA PO; -ASPI1TAB PO; -ASPI81CH PO; +ASPI81CH49 PO; +ASPI81TA26 PO; +HYDR-3715 PO; -NORCOTAB PO; +VITA1TAB23 PO
[2018-12-10 16:43] LABS: CALCIUM LEVEL 8.5 MG/DL (8.8-10.2); CREATININE FOR GFR 0.98 MG/DL (0.55-1.30); POTASSIUM SERUM 4.5 MEQ/L (3.5-5.1)
== END ==
LOC: M WUC 10:54
PROVIDERS: ATTEND Physician Assistant
DX: I10 Essential (primary) hypertension (principal)

== ENCOUNTER 2019-02-20 09:11 | Emergency (ER) | payer MEDICARE, OTHER ==
[~2019-02-20] VITALS: Ht 160 cm; Wt 60.7 kg
[~2019-02-20 09:11] MED LIST changes: +OMEP-358 PO; -OMEP20TA PO; -SIMV40TA2; +SIMV40TA20
[2019-02-20] MEDS ORDERED: CLON0.5T17 PO (09:25)
[2019-02-20] MEDS ORDERED: TIZA2CAP PO (09:25)
[2019-02-20] MEDS ORDERED: GABA-1171 PO (09:25)
[2019-02-20] MEDS ORDERED: ONDA-83 PO (09:25)
[2019-02-20] MEDS ORDERED: OMEP-358 PO (09:25)
[2019-02-20] MEDS ORDERED: NITR0.1S (09:25)
[2019-02-20 09:56] LABS: BASO % 0.7 % (0.0-1.0); EOS # 0.2 10^3/uL (0.0-0.50); EOS % 2.6 % (0.0-3.0); HEMATOCRIT 37.7 % (36.0-47.0); HEMOGLOBIN 12.5 g/dl (12.0-15.5); LYMPH # 1.3 10^3/uL (1.5-4.5); LYMPH % 21.4 % (24.0-44.0); MEAN CORPUSCULAR HEMOGLOBIN 32.8 pg (27.0-33.0); MEAN CORPUSCULAR HGB CONC 33.2 g/dl (32.0-36.5); MONO # 0.4 10^3/uL (0.0-0.8); MONO % 6.6 % (0.0-5.0); NEUTROPHILS % 68.4 % (36.0-66.0); PLATELET COUNT, AUTOMATED 248 10^3/uL (150-450); RED BLOOD COUNT 3.81 10^6/uL (4.00-5.40); WHITE BLOOD COUNT 5.9 10^3/uL (4.0-10.0)
[2019-02-20 10:16] LABS: ALBUMIN 3.4 GM/DL (3.2-5.2); ALT/SGPT 135 U/L (12-78); BILIRUBIN,DIRECT 0.3 MG/DL (0.0-0.2); BILIRUBIN,TOTAL 0.6 MG/DL (0.2-1.0); BLOOD UREA NITROGEN 18 MG/DL (7-18); CALCIUM LEVEL 8.2 MG/DL (8.8-10.2); CARBON DIOXIDE LEVEL 22 MEQ/L (21-32); CHLORIDE LEVEL 111 MEQ/L (98-107); CK-MB VALUE MASS 1.1 NG/ML (<3.6); CPK CREATINE PHOSPHOKINASE 59 U/L (26-192); CREATININE FOR GFR 1.15 MG/DL (0.55-1.30); GLOMERULAR FILTRATION RATE 47.4 (>32); GLUCOSE, FASTING 102 MG/DL (70-100); MB/CK RELATIVE INDEX 1.86 (< OR =4); POTASSIUM SERUM 4.3 MEQ/L (3.5-5.1); SODIUM LEVEL 144 MEQ/L (136-145); TOTAL PROTEIN 6.3 GM/DL (6.4-8.2); TROPONIN I < 0.02 NG/ML (< 0.10)
[2019-02-20] MEDS ORDERED: NS 1,000 ML IV ONE ×2 (10:45)
[2019-02-20] MEDS ORDERED: LIDOCAINE 2% 5ML JELLY UROJET TOP ONE (10:45)
--- NOTE | 2019-02-20 14:18 | REP ---
AP PORTABLE CHEST: 02/20/2019. Comparison: 06/04/2018, CT 08/19/2017. Clinical history: Trauma. Dual lead pacer seen with leads in the right atrium right ventricle. Sternotomy wires and clips in the mediastinum, all unchanged. Heart has some left ventricular configuration. There is no pleural effusion or anali edema. The aorta is tortuous calcified. There is patchy opacity in the right base to be a patchy infiltrate, contusion or chest wall finding. No other airspace opacities. Bones demineralized. Impression: 1. Dual lead pacer and sternotomy with the clips from CABG, unchanged. 2. Some left ventricular configuration of the heart, mildly enlarged. 3. No anali edema, pleural effusion or pneumothorax. Bones without gross fracture. 4. There is an ill-defined patchy density overlying the right base. Similar shapes density projects through the right upper abdominal structures and breath shadow on the previous chest x-ray 06/04/2018. Finding could represent a skin lesion or chest wall lesion, infiltrate or parenchymal contusion. Electronically Signed by German Pinedo MD 02/20/2019 08:35 P
[2019-02-20] MEDS ORDERED: CIPR-249 PO (15:13)
[2019-02-20 15:25] VITALS: BP 158/92
[2019-02-20] MEDS ORDERED: CIPROFLOXACIN 250 MG TAB PO ONE (16:00)
--- NOTE | 2019-02-20 19:24 | ECGEPIP ---
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
--- NOTE | 2019-02-20 21:27 | ED PDOC ---
Post-Departure Follow-Up dr rae faxed formal report of cxr for fu nedg Mani Urbina MD Feb 20, 2019 21:26
--- NOTE | 2019-02-21 09:08 | REP ---
RIGHT UPPER QUADRANT ULTRASOUND: 02/20/2019. Clinical history: Elevated LFTs. Findings: Sonographic evaluation of the right upper quadrant shows the liver homogeneous. There is no focal hepatic mass or cyst. There is no hepatomegaly with a vertical diameter of at 14 cm in the midclavicular line. I see no ascites. Gallbladder surgically absent. There is mild intrahepatic biliary dilatation. The common duct measures 13.4 mm in the edison hepatis. This is similar to the [address] in June. The pancreas is seen only in limited view. Portions seen were grossly intact but again quite limited. The right kidney 11.1 x 4.2 x 4.3 cm. No hydronephrosis. Lipomatosis is noted. Cortex is echogenic suggesting chronic renal disease. The vessels within the renal sinus have echogenic cardona. Impression: 1. Liver homogeneous and not enlarged. There is some mild dilatation of central intrahepatic ducts with dilatation common duct up to 13 mm in this postcholecystectomy patient, that appearance unchanged from CT in June. 2. Gallbladder surgically absent. 3. Pancreas very limited evaluation. 4. Chronic medical renal disease suggested with extrarenal pelvis. Kidney 11.2 cm long. Electronically Signed by German Pinedo MD 02/21/2019 09:19 A
--- NOTE | 2019-02-21 09:13 | REP ---
CT ABDOMEN PELVIS WITHOUT CONTRAST: 02/20/2019. Clinical history: Elevated LFTs. Prior cholecystectomy. Comparison: CT without and with contrast 06/09/2018. Findings: CT abdomen: Lung bases with some minor dependent atelectatic and fibrotic changes with small area of current linear atelectasis or fibrosis right lower lobe. No effusion. Heart enlarged and there is left atrial ventricular enlargement. There was vertical diameter of 15 cm midclavicular line. Some intrahepatic dilatation suggested. The common duct is up to 15 mm in size now. Previously 13 mm in June. No visible calcification within that duct spray artifact from nearby surgical clips from cholecystectomy limit evaluation of the duct and pancreatic head region. I do not see gross mass in the region of the pancreatic head and body or tail. No pancreatic ductal dilatation. The adrenal glands are unremarkable. The kidneys show some sinus lipomatosis and cortical thinning. Extrarenal pelvis but no renal stone, mass or gross cyst. No perinephric fluid. The abdominal aorta is infrarenal aneurysm up to a 3.4 cm in maximal diameter in the mid portion. Peripheral calcifications noted throughout it periaortic small nodes are seen. No mesenteric or retroperitoneal pathologic sized nodes although there appear to be several nodes in the mesentery near the right colon, 5-6 mm in short axis. Small bowel loops without dilatation. Colon is without mass or distension. Stool and gas are scattered in the abdominal portions of the colon. There is no splenomegaly or focal splenic lesion. Small hiatal hernia suggested. Stomach empty for this examination. Bones show degenerative changes in the L5-S1 disc space and some facet arthropathy. No compression fracture or destructive lesion. CT pelvis bony hips, pelvis and sacrum with mild degenerative change without destructive lesion or fracture. The uterus is tilted towards the right side of the pelvis and appears retroverted. Has a few calcifications within the bladder and partially filled without stone, mass or wall thickening and evidence for pelvic floor muscular relaxation noted. No pelvic mass or free fluid. Small bowel loops and colon in the deep pelvis without acute finding. No evidence of colitis or diverticulitis in the distal left colon, sigmoid or rectum. No ventral or inguinal hernia nor pathologic sized inguinal adenopathy. Impression: 1. Mild central dilatation of the intrahepatic bile ducts and the common duct is increased to 15 mm from 13 mm on the previous study. Extensive spray artifact from the cholecystectomy clips limit evaluation. That said that visualized portion of pancreatic head grossly intact. The ultrasound today of pancreatic head region on best visualization suggests the common duct about 7.2 mm when viewed in conjunction with this scan. 2. No hepatomegaly or splenomegaly. No ascites. 3. Infrarenal abdominal aortic aneurysm up to 3.4 cm grossly unchanged. 4. No renal, ureteral or bladder stone. No hydronephrosis. Extrarenal pelves noted. Next, some scattered mesenteric nodes some grouped and near the right colon in the 5-6 mm range in short axis. Electronically Signed by German Pinedo MD 02/21/2019 09:20 A
--- NOTE | 2019-02-21 16:56 | ED PDOC ---
Post-Departure Follow-Up dr rae and dr manning faxed formal report of ct abd/p and liver us for fu Mani Fuentes MD Feb 21, 2019 16:56
== END 2019-02-20 15:30 | disposition home or self-care (01) ==
LOC: M ED 09:11
DX: R94.5 Abnormal results of liver function studies (principal); N39.0 Urinary tract infection, site not specified; I10 Essential (primary) hypertension; I25.10 Atherosclerotic heart disease of native coronary artery without angina pectoris; K21.9 Gastro-esophageal reflux disease without esophagitis; E07.9 Disorder of thyroid, unspecified; E78.00 Pure hypercholesterolemia, unspecified; Z95.0 Presence of cardiac pacemaker; Z79.899 Other long term (current) drug therapy; Z79.890 Hormone replacement therapy; Z79.82 Long term (current) use of aspirin; Z87.891 Personal history of nicotine dependence

== ENCOUNTER → 2019-06-13 | Outpatient (REF) | payer MEDICARE, OTHER ==
[~2019-06-13] MED LIST changes: +CIPR-249 PO; +CLON0.5T17 PO; +GABA-1171 PO; +NITR0.1S; +ONDA4TAB5 PO; +TIZA2CAP PO
[2019-06-13 16:12] LABS: CALCIUM LEVEL 7.8 MG/DL (8.8-10.2); CREATININE FOR GFR 1.18 MG/DL (0.55-1.30); POTASSIUM SERUM 4.3 MEQ/L (3.5-5.1)
== END ==
LOC: M LABDRAW1 15:32
PROVIDERS: ATTEND Physician Assistant
DX: I10 Essential (primary) hypertension (principal)

== ENCOUNTER → 2019-06-22 | Outpatient (REF) | payer MEDICARE, OTHER | LOC: M LAB REF 16:04 | PROVIDERS: ATTEND Physician Assistant | DX: R30.0 Dysuria (principal) ==

== ENCOUNTER → 2019-12-21 | Outpatient (CLI) | payer MEDICARE, OTHER ==
[~2019-12-21] MED LIST changes: +AMLO1TAB24; -AMLO5TAB6; +ASCO250T20 PO; +CLON0.5T2 PO; -LISI-542 PO; +LISI-898 PO; +LISI10TA22 PO; +METH-1164 PO; +ONDA-83 PO; -ONDA4TAB5 PO; -VITA1TAB23 PO
[2019-12-21 14:43] LABS: ALBUMIN 3.4 GM/DL (3.2-5.2); BILIRUBIN,TOTAL 0.4 MG/DL (0.2-1.0); CALCIUM LEVEL 8.3 MG/DL (8.8-10.2); CREATININE FOR GFR 1.56 MG/DL (0.55-1.30); GLOMERULAR FILTRATION RATE 33.3 (>32); POTASSIUM SERUM 5.1 MEQ/L (3.5-5.1); TOTAL PROTEIN 6.5 GM/DL (6.4-8.2)
== END ==
LOC: M WUC 09:04
PROVIDERS: ATTEND Physician Assistant
DX: I25.10 Atherosclerotic heart disease of native coronary artery without angina pectoris (principal); I10 Essential (primary) hypertension; E78.00 Pure hypercholesterolemia, unspecified

== ENCOUNTER → 2020-01-07 | Outpatient (CLI) | payer MEDICARE, OTHER ==
[~2020-01-07] MED LIST changes: -AMLO1TAB24; +AMLO5TAB6; -ASCO250T20 PO; -CLON0.5T2 PO; +LISI-542 PO; -LISI-898 PO; -LISI10TA22 PO; -METH-1164 PO; +VITA1TAB23 PO
[2020-01-07 13:04] LABS: CALCIUM LEVEL 8.6 MG/DL (8.8-10.2); CREATININE FOR GFR 1.49 MG/DL (0.55-1.30); GLOMERULAR FILTRATION RATE 35.1 (>32); POTASSIUM SERUM 4.8 MEQ/L (3.5-5.1)
== END ==
LOC: M WUC 09:42
PROVIDERS: ATTEND Physician Assistant
DX: I10 Essential (primary) hypertension (principal)

== ENCOUNTER 2020-02-28 16:14 | Emergency (ER) | payer MEDICARE, OTHER ==
[~2020-02-28] VITALS: Ht 160 cm; Wt 65.9 kg
[~2020-02-28 16:14] MED LIST changes: +AMLO1TAB24; -AMLO5TAB6; +ASCO250T20 PO; -VITA1TAB23 PO
[2020-02-28] MEDS ORDERED: NS 1,000 ML IV SCH (17:59)
[2020-02-28] MEDS ORDERED: ONDANSETRON 4MG/2ML VIAL IV ONE (18:00)
[2020-02-28] MEDS ORDERED: PANTOPRAZOLE 40MG VIAL (C9113 PER 1) IV ONE (18:00)
[2020-02-28] MEDS ORDERED: METH1TAB40 PO (18:46)
[2020-02-28] MEDS ORDERED: CLON0.5T2 PO (18:46)
--- NOTE | 2020-02-28 19:10 | REPVR ---
PROCEDURE INFORMATION: Exam: CT Abdomen And Pelvis Without Contrast Exam date and time: 02/28/2020 6:17 PM Age: 89 years old Clinical indication: Abdominal pain; Generalized TECHNIQUE: Imaging protocol: Computed tomography of the abdomen and pelvis without contrast. Radiation optimization: All CT scans at this facility use at least one of these dose optimization techniques: automated exposure control; mA and/or kV adjustment per patient size (includes targeted exams where dose is matched to clinical indication); or iterative reconstruction. COMPARISON: CT ABD PELVIS W/O CONTRAST 02/20/2019 1:40 PM FINDINGS: Tubes, catheters and devices: Pacemaker wires are noted in the right atrium and right ventricle. Lungs: The imaged portions of the lung bases are clear. The lungs were not fully imaged. Heart: The heart is enlarged. Coronary artery calcifications are present. No pericardial effusion is noted. Mediastinal space: There is a small sliding hiatal hernia. Liver: Unremarkable. No liver lesion is identified. The contour of the liver is smooth. No hepatomegaly is noted. Gallbladder and bile ducts: There has been a cholecystectomy. There is no fluid collection in the gallbladder fossa. No dilation of the intrahepatic bile ducts is noted. The common bile duct is dilated and measures 13 mm in diameter at the level of the edison hepatis, which is stable compared to the prior CT on 02/20/2019. No calcified stones are seen in the common bile duct. Pancreas: Unremarkable. No dilation of the main pancreatic duct is noted. There is no inflammatory fat stranding around the pancreas to suggest acute pancreatitis. Spleen: Unremarkable. No splenomegaly is noted. Adrenals: Normal. No adrenal mass is noted. Kidneys and ureters: The kidneys are unremarkable. No renal lesion is noted. No stones are noted in the kidneys or ureters. There is no hydronephrosis or hydroureter. Stomach and bowel: The intra-abdominal portion of the stomach is decompressed, limiting its optimal evaluation. There is duodenal and colonic diverticulosis without evidence for diverticulitis. There is no evidence for a bowel obstruction, colitis, pneumatosis intestinalis, intussusception, volvulus, or perforated viscus. Appendix: Normal. There is no evidence for appendicitis. Intraperitoneal space: No free air. No ascites. No asbcess. Retroperitoneal space: No fluid collection. No mass. Vasculature: There is a 3.7 cm x 3.4 cm fusiform infrarenal abdominal aortic aneurysm that is stable compared to the prior CT on 02/20/2019. No rupture of the aneurysm is noted. There are extensive atherosclerotic calcifications. Lymph nodes: No enlarged lymph nodes. Bladder: The partially distended urinary bladder is unremarkable. No stones or masses are seen in the bladder. Reproductive: There is a small calcified intramural fibroid in the left side of the body of the uterus, which is stable compared to the prior CT on 02/20/2019. The ovaries are unremarkable. Bones/joints: There is no fracture or dislocation. Median sternotomy suture wires were partially imaged. There are degenerative changes in the lumbar spine. The bones have a demineralized appearance. No suspicious osteolytic or osteoblastic lesion is noted. Soft tissues: Unremarkable. IMPRESSION: 1. No acute findings in the abdomen or pelvis. 2. 3.7 cm x 3.4 cm fusiform infrarenal abdominal aortic aneurysm that is stable compared to the prior CT on 02/20/2019. No rupture of the aneurysm. 3. Duodenal and colonic diverticulosis without evidence for diverticulitis. 4. Cardiomegaly. 5. Uterine fibroid, which is stable compared to the prior CT abdomen and pelvis on 02/20/2019. Electronically signed by: Navjot Ny On 02/28/2020 19:10:25 PM
[2020-02-28 19:16] LABS: BASO # 0.1 10^3/uL (0.0-0.2); BASO % 0.9 % (0.0-1.0); EOS # 0.2 10^3/uL (0.0-0.5); HEMATOCRIT 41.1 % (36.0-47.0); LYMPH # 2.2 10^3/uL (1.5-5.0); MEAN CORPUSCULAR HEMOGLOBIN 32.6 pg (27.0-33.0); MEAN CORPUSCULAR HGB CONC 31.6 g/dl (32.0-36.5); MONO # 0.6 10^3/uL (0.0-0.8); MONO % 7.6 % (0.0-5.0); NEUTROPHILS # 4.8 10^3/uL (1.5-8.5); NEUTROPHILS % 60.2 % (36.0-66.0); PLATELET COUNT, AUTOMATED 244 10^3/uL (150-450); RED BLOOD COUNT 3.99 10^6/uL (4.00-5.40); WHITE BLOOD COUNT 7.9 10^3/uL (4.0-10.0)
[2020-02-28 19:33] LABS: INR 1.1; PROTHROMBIN TIME 14.4 SECONDS (11.8-14.0)
[2020-02-28] MEDS ORDERED: LABETALOL 100MG/20ML VIAL IV STA ×2 (19:48→21:01)
[2020-02-28 20:12] LABS: ALBUMIN 3.6 GM/DL (3.2-5.2); BILIRUBIN,DIRECT 0.2 MG/DL (0.0-0.2); BILIRUBIN,TOTAL 0.5 MG/DL (0.2-1.0); CALCIUM LEVEL 8.6 MG/DL (8.8-10.2); CREATININE FOR GFR 1.24 MG/DL (0.55-1.30); GLOMERULAR FILTRATION RATE 43.4 (>32); POTASSIUM SERUM 4.5 MEQ/L (3.5-5.1); TOTAL PROTEIN 6.9 GM/DL (6.4-8.2)
[2020-02-28 21:10] VITALS: BP 182/88
[2020-02-28 21:15] VITALS: BP 179/87
== END 2020-02-28 23:01 | disposition home or self-care (01) ==
LOC: M ED 16:14 → EDBD 16:14 → M ED 23:01
DX: K59.00 Constipation, unspecified (principal); R10.9 Unspecified abdominal pain; I51.7 Cardiomegaly; I71.4 Abdominal aortic aneurysm, without rupture; D25.9 Leiomyoma of uterus, unspecified; I10 Essential (primary) hypertension; I51.9 Heart disease, unspecified; Z95.1 Presence of aortocoronary bypass graft; Z87.891 Personal history of nicotine dependence; Z79.82 Long term (current) use of aspirin; Z79.899 Other long term (current) drug therapy
CPT/HCPCS: 74176; 80048; 80076; 81001; 82150; 83690; 85025; 85610; 96361; 96374; 96375; 96376; 99284; C9113; J2405

== ENCOUNTER 2020-03-03 01:27 | Emergency (ER) | payer MEDICARE, OTHER ==
[~2020-03-03 01:27] MED LIST changes: +CLON0.5T2 PO; +METH1TAB40 PO
[2020-03-03] MEDS ORDERED: cloNIDine 0.2 MG TAB PO ONE (03:00)
[2020-03-03 03:10] VITALS: BP 208/77
[2020-03-03 04:05] VITALS: BP 150/63
== END 2020-03-03 04:10 | disposition home or self-care (01) ==
LOC: M ED 01:27
DX: I10 Essential (primary) hypertension (principal); I25.10 Atherosclerotic heart disease of native coronary artery without angina pectoris; E78.5 Hyperlipidemia, unspecified; D64.9 Anemia, unspecified; Z87.891 Personal history of nicotine dependence; Z79.82 Long term (current) use of aspirin; Z79.899 Other long term (current) drug therapy

== ENCOUNTER → 2020-03-15 | Outpatient (CLI) | payer MEDICARE, OTHER ==
[2020-03-15 16:52] LABS: CALCIUM LEVEL 8.6 MG/DL (8.8-10.2); CREATININE FOR GFR 1.24 MG/DL (0.55-1.30); GLOMERULAR FILTRATION RATE 43.4 (>32); POTASSIUM SERUM 4.6 MEQ/L (3.5-5.1)
== END ==
LOC: M WUC 11:39
PROVIDERS: ATTEND Physician Assistant
DX: I10 Essential (primary) hypertension (principal)

== ENCOUNTER 2020-09-21 09:16 | Observation (INO) | payer MEDICARE, OTHER ==
[~2020-09-21] VITALS: Ht 162.6 cm; Wt 68.7 kg
[~2020-09-21 09:16] MED LIST changes: -LISI-542 PO; +LISI-898 PO; +LISI10TA22 PO; +METH-1164 PO; -METH1TAB40 PO
[2020-09-21] MEDS ORDERED: AMLO1TAB24 PO (09:31)
[2020-09-21] MEDS ORDERED: ONDANSETRON 4MG/2ML VIAL IV ONE (10:25)
[2020-09-21] MEDS ORDERED: NS 500 ML IV ONE (10:25)
--- NOTE | 2020-09-21 10:52 | REP ---
INDICATION: sob, malaise. COMPARISON: Comparison chest x-ray February 20, 2019. TECHNIQUE: Portable upright AP chest radiograph. FINDINGS: The lungs are symmetrically aerated and free of infiltrate. A soft tissue calcification which was previously noted to be in the right posterior extra thoracic soft tissues is again seen projecting at the right base unchanged. Lung harman are felt to be clear. Pleural angles are sharp. Median sternotomy wires and mediastinal clips are noted. A bipolar pacemaker remains in the right heart view of the left side. Pulmonary vasculature is not increased. Heart size is borderline.. IMPRESSION: No active disease. <Electronically signed by Vinay Potter > 09/21/20 [id number]
[2020-09-21 11:29] LABS: BASO % 0.5 % (0.0-1.0); EOS # 0.2 10^3/uL (0.0-0.5); EOS % 2.2 % (0.0-3.0); HEMOGLOBIN 12.1 g/dl (12.0-15.5); LYMPH # 1.3 10^3/uL (1.5-5.0); MEAN CORPUSCULAR HEMOGLOBIN 34.5 pg (27.0-33.0); MEAN CORPUSCULAR HGB CONC 32.7 g/dl (32.0-36.5); MEAN CORPUSCULAR VOLUME 105.4 fl (80.0-96.0); MONO # 0.6 10^3/uL (0.0-0.8); MONO % 7.7 % (2.0-8.0); NEUTROPHILS # 6.2 10^3/uL (1.5-8.5); NEUTROPHILS % 74.1 % (36.0-66.0); PLATELET COUNT, AUTOMATED 356 10^3/uL (150-450); RED BLOOD COUNT 3.51 10^6/uL (4.00-5.40); WHITE BLOOD COUNT 8.3 10^3/uL (4.0-10.0)
[2020-09-21 11:48] LABS: RSV AMPLIFICATION NEGATIVE (NEGATIVE)
[2020-09-21] MEDS ORDERED: ACETAMINOPHEN 325 MG TAB PO ONE (12:20)
[2020-09-21 13:36] LABS: ALBUMIN 2.8 GM/DL (3.2-5.2); ALT/SGPT 9 U/L (12-78); BILIRUBIN,DIRECT 0.4 MG/DL (0.0-0.2); BILIRUBIN,TOTAL 0.7 MG/DL (0.2-1.0); BLOOD UREA NITROGEN 32 MG/DL (7-18); CARBON DIOXIDE LEVEL 24 MEQ/L (21-32); CHLORIDE LEVEL 109 MEQ/L (98-107); CK-MB VALUE MASS < 1.0 NG/ML (<3.6); CPK CREATINE PHOSPHOKINASE 54 U/L (26-192); CREATININE FOR GFR 1.57 MG/DL (0.55-1.30); GLUCOSE, FASTING 91 MG/DL (70-100); MB/CK RELATIVE INDEX 1.85 (< OR =4); NT-PRO BNP 288 PG/ML (<450); POTASSIUM SERUM 5.2 MEQ/L (3.5-5.1); SODIUM LEVEL 139 MEQ/L (136-145); TOTAL PROTEIN 6.4 GM/DL (6.4-8.2); TROPONIN I < 0.02 NG/ML (< 0.10)
--- NOTE | 2020-09-21 15:27 | REP ---
INDICATION: vomiting, diarrhea. COMPARISON: 02/28/2020. TECHNIQUE: Abdomen/pelvis CT without IV or bowel contrast. FINDINGS: The visualized lung harman are unchanged and unremarkable. The unenhanced hepatic parenchyma is unremarkable. There are surgical clips in the gallbladder fossa, unchanged. The pancreas and spleen are normal size and unremarkable. This is unchanged. Next I suspect there is a duodenal diverticulum, unchanged. The adrenals and kidneys are unremarkable. This is unchanged. There is a fusiform abdominal aortic aneurysm in the mid aorta, infrarenal measuring 3.4 x 3.7 cm, unchanged. There is no periaortic hematoma. The bowel and mesentery are unremarkable. Pelvis: The pelvic bowel loops are unremarkable. The appendix is unremarkable. There is no ascites or adenopathy. The uterus, adnexa and bladder are unremarkable. IMPRESSION: The bowel and mesentery are unremarkable except for duodenal diverticulum, unchanged. The known fusiform abdominal aortic aneurysm is unchanged in size. There is no adenopathy, mass or ascites. No evidence of bowel obstruction. <Electronically signed by Gerardo Milton > 09/21/20 [id number]
[2020-09-21 16:00] VITALS: BP 126/79
[2020-09-21] MEDS ORDERED: SOD POLYSTYRENE SULFONATE SUSP 15 GM/60 ML UD PO ONE (16:00)
[2020-09-21] MEDS ORDERED: NS 1,000 ML IV ONE (16:00)
[2020-09-21] MEDS ORDERED: PILL CUTTER 1 EACH XX PRN (16:10)
[2020-09-21 16:22] LABS: C REACTIVE PROTEIN QUANTITATIV 5.76 MG/DL (0.00-0.30)
--- NOTE | 2020-09-21 16:23 | REP ---
INDICATION: WEIGHT LOSS FATIGUE R/O LYMPHADENOPATHY/LYMPHOMA. COMPARISON: 08/19/2017. TECHNIQUE: CT of the chest without IV contrast. FINDINGS: There is mild diffuse bilateral interstitial coarsening, unchanged, compatible with chronic lung disease. There are no infiltrates or effusions. There are small focal areas of chronic scarring in the lower lobes bilaterally. There are no lung masses or nodules. There is no mediastinal or axillary lymph node enlargement. In the absence of IV contrast the study is insensitive for hilar lymph node enlargement. The thoracic aorta is unremarkable. Cardiac size is normal, unchanged. 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 Sternotomy wires and bypass grafting are again identified, unchanged. The visualized unenhanced upper abdominal contents are unremarkable. There are no lytic, blastic or destructive skeletal changes. IMPRESSION: There is no lymph node enlargement, however, the study is insensitive for hilar lymph node enlargement in the absence of IV contrast as discussed above. There are no acute infiltrates or pleural effusions. There are no pulmonary nodules or masses. 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 There are sternotomy wires and bypass graft, unchanged. There is a dual chamber pacemaker, unchanged. <Electronically signed by Gerardo Milton > 09/21/20 [id number]
[2020-09-21] MEDS ORDERED: LISI20TA33 PO (16:27)
[2020-09-21] MEDS ORDERED: methocarbamoL 500 MG TAB PO PRN (16:45)
[2020-09-21] MEDS ORDERED: clonazePAM 0.5 MG TAB PO PRN (16:45)
--- NOTE | 2020-09-21 16:49 | HPEPDOC ---
[facility] Medical History & Physical Date of Admission Sep 21, 2020 Date of Service: Sep 21, 2020 History and Physical Hospitalist H&P dictated job #[id number]. . If note, is urgently needed. Please call hypertensive, but [phone] stat transcribed history and physical by Dr. Delarosa. Brief summary: 87-year-old female, DO NOT RESUSCITATE, DO NOT INTUBATE with history of renal failure, chronic left bundle branch block. CAD, CABG, coronary stents 9. Sinus node dysfunction with pacemaker, hypothyroidism, hypertension with chronic weight loss since 2018, status post colonoscopy, EGD with negative findings. CT chest, abdomen and pelvis are negative, presents to emergency room with 3 week history of on and off diarrhea 3-4 times a day, inability to keep anything down for the past 2 days due to intractable nausea, vomiting, nonbilious, nonprojectile with no new medications and not on digoxin. Patient denies any sick contacts and was found to be in acute kidney injury. Creatinine 1.57 with hyperkalemia. Hospitalist was asked to admit the patient for acute kidney injury in the setting of diarrhea, weight loss. Vital Signs Vital Signs Date Time Temp Pulse Resp B/P (MAP) Pulse Ox O2 Delivery O2 Flow Rate FiO2 09/21/20 16:45 96.7 09/21/20 16:31 80 18 151/70 (97) 94 Room Air Laboratory Data Labs 24H Laboratory Tests 2 09/21/20 10:45: Immature Granulocyte % (Auto) 0.5, Neutrophils (%) (Auto) 74.1H, Lymphocytes (%) (Auto) 15.0L, Monocytes (%) (Auto) 7.7, Eosinophils (%) (Auto) 2.2, Basophils (%) (Auto) 0.5, Neutrophils # (Auto) 6.2, Lymphocytes # (Auto) 1.3L, Monocytes # (Auto) 0.6, Eosinophils # (Auto) 0.2, Basophils # (Auto) 0.0, Nucleated Red Blood Cells % (auto) 0.0, Lactic Acid Level 1.7, Coronavirus (COVID-19)(PCR) NEGATIVE, Influenza Type A (RT-PCR) NEGATIVE, Influenza Type B (RT-PCR) N EGATIVE, Respiratory Syncytial Virus (PCR) NEGATIVE 09/21/20 12:54: Anion Gap 6L, Glomerular Filtration Rate 33.0, Calcium Level 8.0L, Total Bilirubin 0.7, Direct Bilirubin 0.4H, Aspartate Amino Transf (AST/SGOT) 10, Alanine Aminotransferase (ALT/SGPT) 9L, Alkaline Phosphatase 136H, Total Creatine Kinase 54, Creatine Kinase MB < 1.0, Creatine Kinase MB Relative Index 1.85, Troponin I < 0.02, C-Reactive Protein, Quantitative 5.76H, FM-Sjh-A-Type Natriuretic Peptide 288, Total Protein 6.4, Albumin 2.8L, Albumin/Globulin Ratio 0.8L 09/21/20 14:11: Urine Color YELLOW, Urine Appearance HAZY, Urine pH 5.0, Urine Specific [place] 1.016, Urine Protein NEGATIVE, Urine Glucose (UA) NEGATIVE, Urine Ketones 1+H, Urine Blood NEGATIVE, Urine Nitrite NEGATIVE, Urine Bilirubin NEGATIVE, Urine Urobilinogen 2.0H, Urine Leukocyte Esterase 3+H, Urine WBC (Auto) 47H, Urine RBC (Auto) 3, Urine Hyaline Casts (Auto) 3, Urine Bacteria (Auto) 1+H, Urine Squamous Epithelial Cells 2, Urine Renal Epithelial Cells 1, Urine Mucus (Auto) SMALL, Urine Sperm (Auto) CBC/BMP Laboratory Tests 09/21/20 10:45 09/21/20 12:54 Microbiology Microbiology 09/21/20 Urine Culture, Received Pending Home Medications Scheduled Amlodipine Besylate (Amlodipine Besylate) 5 Mg Tablet, 5 MG PO DAILY Aspirin (Aspirin) 81 Mg Chw, 81 MG PO DAILY Gabapentin (Gabapentin) 100 Mg Capsule, 100 MG PO TID Lisinopril (Lisinopril) 20 Mg Tablet, 20 MG PO DAILY Metoprolol Tartrate (Metoprolol Tartrate) 25 Mg Tab, 12.5 MG PO DAILY Omeprazole (Omeprazole) 20 Mg Tablet.dr, 20 MG PO BID Simvastatin (Zocor) 40 Mg Tab, 40 MG PO QHS Scheduled PRN Clonazepam (Clonazepam) 0.5 Mg Tablet, 0.5 MG PO BID PRN for ANXIETY Methocarbamol (Methocarbamol) 500 Mg Tablet, 500 MG PO TID PRN for SPASMS Ondansetron HCl (Ondansetron HCl) 4 Mg Tablet, 4 MG PO Q6H PRN for nausea/vomiting Tizanidine HCl (Tizanidine HCl) 2 Mg Capsule, 2 MG PO QHS PRN for INSOMNIA Allergies Coded Allergies: No Known Allergies (Unverified , 02/20/19) A-FIB/CHADSVASC A-FIB History Current/History of A-Fib/PAF?: No Current PO Anticoag Therapy: No Age/Risk Factor Scoring CHADSVASC: CHADSVASC Response (Comments) Value Age Risk Factor Age >/= 75 years old 2 Gender Risk Factor Female 1 Hx of CHF No 0 Hx of HTN Yes 1 Hx of Stroke/TIA/or VTE No 0 Hx of Vascular Disease Yes 1 Total 5 Treatment Treatment ordered: NONE LÓPEZ DELAROSA MD Sep 21, 2020 16:49
[2020-09-21 16:57] LABS: ERYTHROCYTE SEDIMENTATION RATE 45 mm/hr (0-30)
[2020-09-21 17:00] VITALS: BP 126/79
[2020-09-21] MEDS: amLODIPine 5 MG TAB PO SCH (17:06)
[2020-09-21] MEDS: LACTOBACILLUS ACIDOPHILUS CAP (BACID) PO SCH (17:09)
[2020-09-21] MEDS: METOCLOPRAMIDE 5 MG TAB PO SCH ×2 (17:09→20:20)
[2020-09-21] MEDS: cefTRIAXone SOD 1 GM in D5W MINI-BAG PLUS 50 ML IV SCH (17:09)
[2020-09-21] MEDS ORDERED: NS 1,000 ML IV SCH (17:50)
[2020-09-21] MEDS: ONDANSETRON 4MG/2ML VIAL IV SCH ×2 (18:51→23:10)
[2020-09-21] MEDS: GABAPENTIN 100 MG CAP PO SCH (20:20)
[2020-09-21] MEDS: SIMVASTATIN 40 MG TAB PO SCH (20:20)
[2020-09-21] MEDS: OMEPRAZOLE 20 MG CAP PO SCH (20:20)
[2020-09-21 22:00] VITALS: BP 132/73
[2020-09-22] MEDS ORDERED: DICYCLOMINE 10 MG CAP PO ONE
[2020-09-22] MEDS: ONDANSETRON 4MG/2ML VIAL IV SCH (05:10)
[2020-09-22 05:44] LABS: HEMATOCRIT 30.2 % (36.0-47.0); HEMOGLOBIN 9.6 g/dl (12.0-15.5); MEAN CORPUSCULAR HEMOGLOBIN 33.3 pg (27.0-33.0); MEAN CORPUSCULAR HGB CONC 31.8 g/dl (32.0-36.5); MEAN CORPUSCULAR VOLUME 104.9 fl (80.0-96.0); PLATELET COUNT, AUTOMATED 319 10^3/uL (150-450); RED BLOOD COUNT 2.88 10^6/uL (4.00-5.40); WHITE BLOOD COUNT 5.9 10^3/uL (4.0-10.0)
[2020-09-22 06:00] VITALS: BP 126/72
[2020-09-22 06:14] LABS: CALCIUM LEVEL 7.5 MG/DL (8.8-10.2); CREATININE FOR GFR 1.31 MG/DL (0.55-1.30); GLOMERULAR FILTRATION RATE 40.7 (>32); MAGNESIUM LEVEL 1.7 MG/DL (1.8-2.4); POTASSIUM SERUM 4.3 MEQ/L (3.5-5.1)
[2020-09-22] MEDS ORDERED: ONDANSETRON 4MG/2ML VIAL IV PRN (07:50)
[2020-09-22] MEDS: ASPIRIN 81 MG CHEW TABLET PO SCH (08:14)
[2020-09-22] MEDS: GABAPENTIN 100 MG CAP PO SCH ×2 (08:15→21:03)
[2020-09-22] MEDS: NS 1,000 ML IV SCH ×2 (08:15→17:10)
[2020-09-22] MEDS: LACTOBACILLUS ACIDOPHILUS CAP (BACID) PO SCH ×3 (08:15→17:07)
[2020-09-22] MEDS: MAGNESIUM OXIDE 400MG TAB (MAG-OX) PO SCH ×2 (08:15→21:04)
[2020-09-22] MEDS: LOMOTIL 2.5MG/0.025MG TABLET PO SCH ×4 (08:15→19:49)
[2020-09-22 08:17] VITALS: BP 97/56
[2020-09-22] MEDS: amLODIPine 5 MG TAB PO SCH (08:17)
[2020-09-22] MEDS: OMEPRAZOLE 20 MG CAP PO SCH ×2 (08:17→21:03)
[2020-09-22] MEDS ORDERED: MAG SULF 1GM/100ML (MAG RUN) 1 GM in IV 1 EA IV ONE (09:00)
[2020-09-22] MEDS ORDERED: FLUBLOK(EGG FREE)(QUAD)INFLUENZA VACC 0.5ML SYRINGE 18YRS & OLDER IM ONE (09:00)
--- NOTE | 2020-09-22 09:07 | IPNPDOC ---
Date Seen The patient was seen on 09/22/20. Progress Note Hospitalist progress note dictated job #[id number] . If note, is urgently needed. 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 VS, I&O, 24H, Fishbone Vital Signs/I&O Vital Signs Date Time Temp Pulse Resp B/P (MAP) Pulse Ox O2 Delivery O2 Flow Rate FiO2 09/22/20 08:17 75 97/56 09/22/20 06:00 98.5 16 96 Room Air I&O- Last 24 Hours up to 6 AM 09/22/20 06:00 Intake Total 2370 ml Output Total 100 ml Balance 2270 ml Laboratory Data 24H LABS Laboratory Tests 2 09/21/20 10:45: Immature Granulocyte % (Auto) 0.5, Neutrophils (%) (Auto) 74.1H, Lymphocytes (%) (Auto) 15.0L, Monocytes (%) (Auto) 7.7, Eosinophils (%) (Auto) 2.2, Basophils (%) (Auto) 0.5, Neutrophils # (Auto) 6.2, Lymphocytes # (Auto) 1.3L, Monocytes # (Auto) 0.6, Eosinophils # (Auto) 0.2, Basophils # (Auto) 0.0, Nucleated Red Blood Cells % (auto) 0.0, Erythrocyte Sedimentation Rate 45H, Lactic Acid Level 1.7, Coronavirus (COVID-19)(PCR) NEGATIVE, Influenza Type A (RT-PCR) NEGATIVE, Influenza Type B (RT-PCR) NEGATIVE, Respiratory Syncytial Virus (PCR) NEGATIVE 09/21/20 12:54: Anion Gap 6L, Glomerular Filtration Rate 33.0, Calcium Level 8.0L, Total Bilirubin 0.7, Direct Bilirubin 0.4H, Aspartate Amino Transf (AST/SGOT) 10, Alanine Aminotransferase (ALT/SGPT) 9L, Alkaline Phosphatase 136H, Total Creatine Kinase 54, Creatine Kinase MB < 1.0, Creatine Kinase MB Relative Index 1.85, Troponin I < 0.02, C-Reactive Protein, Quantitative 5.76H, RE-Ixa-W-Type Natriuretic Peptide 288, Total Protein 6.4, Albumin 2.8L, Albumin/Globulin Ratio 0.8L 09/21/20 14:11: Urine Color YELLOW, Urine Appearance HAZY, Urine pH 5.0, Urine Specific [place] 1.016, Urine Protein NEGATIVE, Urine Glucose (UA) NEGATIVE, Urine Ketones 1+H, Urine Blood NEGATIVE, Urine Nitrite NEGATIVE, Urine Bilirubin NEGATIVE, Urine Urobilinogen 2.0H, Urine Leukocyte Esterase 3+H, Urine WBC (Auto) 47H, Urine RBC (Auto) 3, Urine Hyaline Casts (Auto) 3, Urine Bacteria (Auto) 1+H, Urine Squamous Epithelial Cells 2, Urine Renal Epithelial Cells 1, Urine Mucus (Auto) SMALL, Urine Sperm (Auto) 09/22/20 05:32: Nucleated Red Blood Cells % (auto) 0.0, Anion Gap 4L, Glomerular Filtration Rate 40.7, Calcium Level 7.5L, Magnesium Level 1.7L CBC/BMP Laboratory Tests 09/21/20 10:45 09/21/20 12:54 09/22/20 05:32 Microbiology Microbiology 09/21/20 Gastrointestinal Tract Panel (PCR) - Final, Complete 09/21/20 Urine Culture - Final, Complete LÓPEZ HU MD Sep 22, 2020 09:07
--- NOTE | 2020-09-22 09:58 | HPE ---
HISTORY AND PHYSICAL DATE OF ADMISSION: 09/21/2020 CHIEF COMPLAINTS: 1. Diarrhea. 2. Weakness. HISTORY OF PRESENT ILLNESS: This is an 89-year-old female with a history of CAD, abdominal aortic aneurysm, hypothyroidism, hypertension, SA node dysfunction, renal failure, left bundle branch block, CABG, 9 stents, presents to the Emergency Room with a 15 pound weight loss for the past 3 weeks, on and off diarrhea 3-4 times a day, worsened in the middle of the night last night with abdominal cramping, better when she defecated. Patient presents today because of intractable nausea, vomiting for the past 2 days, unable to keep any food down, has not had a regular diet in some time, for the past 3 days. Patient denies any fever, chills, bright red blood per rectum, melena, black tarry stools, odynophagia, dysphagia. She denies any history of VIPOMA,chronic mesenteric ischemia, gastrinoma, recent antibiotic use/cdiff, microscopic colitis, pheochromocytoma. Denies palpitations, lightheadedness, dizziness, lumps or bumps or any history of lymphoma in the past. In the ER she was found to be hypotensive, systolic pressure of 98, given 2 liters of I.V. fluid, improved to 119 systolic. Creatinine was 1.57, hyperkalemic with a potassium of 5.2. Hospitalist was called to admit the patient for intractable nausea, vomiting, diarrhea and weight loss. Patient had similar episode in 2018. She has had previous EGD, colonoscopy all of which were negative. Repeat CT abdomen and pelvis today shows unremarkable bowel and mesentery, fusiform, abdominal aortic aneurysm which is unchanged in size. Due to complaints of fatigue, weight loss CT chest was also done with no lymphadenopathy. She had prior sternotomy and bypass graft which are unchanged as well as a pacemaker otherwise there is no pulmonary nodules, masses noted. PAST MEDICAL HISTORY: 1. SA node dysfunction. 2. Renal failure. 3. Left bundle branch block. 4. CAD. 5. Hypothyroidism. 6. Hypertension. 7. Degenerative disc disease. 8. Abdominal aortic aneurysm. PAST SURGICAL HISTORY: 1. CABG. 2. Cholecystectomy. 3. Tonsillectomy. 4. Coronary stents times 9. 5. Pacemaker. FAMILY HISTORY: Noncontributory due to advanced age. SOCIAL HISTORY: Previously smoked quit in 2001. No alcohol, recreational drug use. 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 Lives alone. She walks unassisted. She is Do Not Resuscitate, Do Not Intubate. MOLST form has been signed by the patient. REVIEW OF SYSTEMS: Per HPI, 12 point system otherwise negative. PHYSICAL EXAMINATION: Vital signs: Temperature 97.9, pulse 77, res 18, bp 98/52, 93% on room air. General: Awake, alert, oriented times 3, gregarious, no respiratory distress, able to speak in full sentences, no conversational dyspnea, following commands. HEENT: No pallor, icterus, jaundice. Dry mucous membranes. Chapped lips. Pupils round and reactive to light, extraocular muscles are intact. Moist mucous membranes. Face is symmetric. Tongue is midline. Neck: No JVD, thyromegaly. Lungs: Clear to auscultation, no wheezes, rhonchi or rales. Heart: S1 and S2 sinus rhythm. Abdomen: Soft, nontender, nondistended, positive bowel sounds, no CVA tenderness. Extremities: No cyanosis, clubbing or any pitting edema. LABORATORY DATA: White count 8.3, hemoglobin 12, hematocrit 37, platelet count 356. Sodium 139, potassium 5.2, chloride 109, bicarb 24, BUN 32, creatinine 1.57, glucose 91. Total bilirubin 0.7, direct bilirubin 0.4, AST 10, ALT 9, alkaline phosphatase 136. Total CK 54. Troponin less than 0.02. C-reactive protein 5.76. BNP 288. Albumin 2.8. IMAGING STUDIES: CT chest, abdomen and pelvis all within normal limits. ASSESSMENT AND PLAN: This is an 89-year-old female lives alone unassisted, fairly independent, history of CAD, CABG, stents times 9, hypertension, prior history of smoking, abdominal aortic aneurysm, cholecystectomy, pacemaker, chronic left bundle branch block, renal failure, chronic diarrhea, weight loss, SA node dysfunction with pacemaker presented to the Emergency Room with a 50 pound weight loss for the past 3 weeks and she had her Coronavirus vaccine on 09/04/2020 with 3-4 episodes of diarrhea at home and 2 day history of intractable nausea, vomiting prompting her to come to the ER. Patient will be admitted as an inpatient for the following issues: 1. Acute kidney injury secondary to volume loss, vomiting and diarrhea: Patient will be admitted to a medical surgical floor, given I.V. fluids, anti-emetics. If patient has persistent diarrhea check a GI panel for C. diff. no recent antibiotic use. 2. Diarrhea: Patient will be evaluated with GI panel, IBD serology including YOHANNES. Patient will need a colonoscopy to rule out microscopic colitis if GI panel and all the other work-up is normal. She does not have any blood diarrhea or any significant abdominal pain that accompanies her weight loss and diarrhea to warrant investigation for possible chronic mesenteric ischemia despite her risk factor of having atherosclerotic disease with history of CAD and CABG in the past. If patient should develop aversion to food as well as significant abdominal pain 2 hours postprandial may consider doing an MRA to rule out occlusion of the SMA and celiac arteries. Patient does not present with any blood diarrhea at this time and she will not be given empiric antibiotics as she is unlikely to be having ischemic colitis. 3. History of CAD, CABG, coronary stents times 9: Continue on home medications. 4. Hypothyroidism: Continue on Synthroid. 5. Hypertension: Currently controlled. May resume home meds with holding parameters. 6. Chronic back pain: As needed pain medications. Avoid non-steroidal anti-inflammatories. 7. History of SA node dysfunction: Status post pacemaker. May resume home medications. Patient is not on any digoxin. We will hold patient's lisinopril for now. 8. DVT prophylaxis: With compression stockings. CODE STATUS: She is Do Not Resuscitate, Do Not Intubate. [facility]
[2020-09-22 14:00] VITALS: BP 123/73
--- NOTE | 2020-09-22 15:19 | IPN ---
PROGRESS NOTE DATE: 09/22/2020 SUBJECTIVE: Patient still complains of persistent voluminous, watery diarrhea last night, about five; however, the only recorded bowel movements was one per nursing. Patient denies dizziness, lightheadedness. She complains of slight abdominal cramping which resolved after her diarrhea episode. She has no fatigue, weakness, nausea or vomiting. No fever or chills overnight. OBJECTIVE: PHYSICAL EXAMINATION: VITAL SIGNS: Temperature 98.5, pulse 87, respiratory rate 16, blood pressure 126/72, 96% on room air. GENERAL: Patient is awake, alert, oriented times three, very pleasant and conversant, appropriate. No respiratory distress. No pallor, icterus or jaundice. LUNGS: Clear to auscultation. No wheezing, rales or rhonchi. HEART: S1, S2. Sinus rhythm. ABDOMEN: Soft. Slightly tender bilateral lower quadrants. No rebound or guarding. EXTREMITES: No pitting edema. LABORATORY DATA: White count 5.9, hemoglobin 9.6, hematocrit 30, platelet count 319. Sodium 144, potassium 4.2, chloride 116, bicarbonate 24, BUN 24, creatinine 1.31, glucose 96, magnesium 17. Troponin less than 0.02. BNP 288. Albumin 8. MICROBIOLOGY: Gastrointestinal (GI) panel negative. Urine culture is contaminated. IMAGING STUDIES: CT chest, abdomen and pelvis: No acute intraabdominal or intrathoracic abnormality. ASSESSMENT AND PLAN: This is an 87-year-old DO NOT RESUSCITATE (DNR)/DO NOT INTUBATE, medical orders for life-sustaining treatment (MOLST) form has been filled out, with history of chronic kidney disease stage III, chronic left bundle branch block, coronary artery disease (CAD), coronary artery bypass graft (CABG), coronary stents times nine, sinus node dysfunction with pacemaker, hypothyroidism, hypertension, with chronic weight loss, about 70 pounds since 2018, status post colonoscopy/esophagogastroduodenoscopy (EGD) with negative findings, but no referral to gastroenterology, last admitted in 2018 with similar complaints of nausea, vomiting, abdominal discomfort with diarrhea, presents again today with two day history of intractable nausea and vomiting, nonbilious, nonprojectile. No fever, chills or abdominal pains as well as on and off diarrhea, 3-4 times a day for the past three weeks. Patient was found to have worsening renal failure with creatinine increasing to 1.57 and hyperkalemia. Patient was admitted yesterday due to intractable nausea, vomiting and diarrhea with acute on chronic renal failure stage III. CT chest, abdomen and pelvis was negative. TSH was within normal limits. Gastrointestinal (GI) panel was negative. Active issues are as follows: 1. Acute on chronic kidney disease stage III. Secondary to hypovolemia from persistent diarrhea. Patient had been hydrated overnight with net positive balance close to 2.5 liters with hemodilutional anemia this morning. Admission weight was 68.7. We will decrease the intravenous (IV) fluids to 100 mL/hour. Continue with hydration until diarrhea has subsided. 2. Diarrhea with weight loss. Patient has persistent diarrhea. GI panel is negative. YOHANNES, celiac sprue testing has been sent. Patient will need to be evaluated as outpatient by range rider for further workup in light of persistent weight loss and chronic symptoms. Since the GI panel is negative for acute infectious process, patient may be started on antimotility drugs today. Continue with IV fluids until diarrhea subsides or decreases by 50%. No Clostridium (C) difficile on exam. 3. Hyperkalemia. Secondary to renal failure. Status post Kayexalate. Improved. 4. Hypomagnesemia. Secondary to diarrhea. 5. Abnormal urinalysis with complaints of abdominal pain. Urine culture is contaminated. Continue on three days of IV ceftriaxone. 6. Chronic back pain. Resumed on home medications. DISPOSITION: Discharge in the morning if creatinine is back to her baseline and passes a home safety evaluation. [facility]
[2020-09-22] MEDS: cefTRIAXone SOD 1 GM in D5W MINI-BAG PLUS 50 ML IV SCH (17:07)
[2020-09-22 18:54] LABS: CALCIUM LEVEL 7.4 MG/DL (8.8-10.2); CREATININE FOR GFR 1.24 MG/DL (0.55-1.30); GLOMERULAR FILTRATION RATE 43.4 (>32); POTASSIUM SERUM 4.3 MEQ/L (3.5-5.1)
[2020-09-22] MEDS: SIMVASTATIN 40 MG TAB PO SCH (21:03)
[2020-09-22 22:00] VITALS: BP 105/52
[2020-09-23 00:37] LABS: CALCIUM LEVEL 7.4 MG/DL (8.8-10.2); CREATININE FOR GFR 1.13 MG/DL (0.55-1.30); GLOMERULAR FILTRATION RATE 48.3 (>32); POTASSIUM SERUM 4.3 MEQ/L (3.5-5.1)
[2020-09-23 06:00] VITALS: BP 119/77
[2020-09-23 06:08] LABS: HEMATOCRIT 31.5 % (36.0-47.0); HEMOGLOBIN 9.8 g/dl (12.0-15.5); MEAN CORPUSCULAR HEMOGLOBIN 33.4 pg (27.0-33.0); MEAN CORPUSCULAR HGB CONC 31.1 g/dl (32.0-36.5); MEAN CORPUSCULAR VOLUME 107.5 fl (80.0-96.0); PLATELET COUNT, AUTOMATED 297 10^3/uL (150-450); RED BLOOD COUNT 2.93 10^6/uL (4.00-5.40); WHITE BLOOD COUNT 5.7 10^3/uL (4.0-10.0)
[2020-09-23 06:30] LABS: CALCIUM LEVEL 7.5 MG/DL (8.8-10.2); CREATININE FOR GFR 1.11 MG/DL (0.55-1.30); GLOMERULAR FILTRATION RATE 49.3 (>32); POTASSIUM SERUM 4.1 MEQ/L (3.5-5.1)
[2020-09-23] MEDS: LOMOTIL 2.5MG/0.025MG TABLET PO SCH (07:30)
[2020-09-23] MEDS ORDERED: RISATAB3 PO (07:37)
[2020-09-23] MEDS ORDERED: DIPH2.5T15 PO (07:37)
[2020-09-23] MEDS ORDERED: MAGN400T2 PO (07:37)
--- NOTE | 2020-09-23 07:57 | ECGEPIP ---
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 Order Number: [id number] Reading MD: Razia Montoya Measurements Intervals [place] Rate: 92 P: 69 MS: 200 QRS: -52 QRSD: 128 T: 74 QT: 408 QTc: 504 Interpretive Statements Normal sinus rhythm Right bundle branch block Left anterior fascicular block Bifascicular block Minimal voltage criteria for LVH, may be normal variant ( R in aVL ) increased rate 02/20/19 Electronically Signed on 09-23-2020 7:56:56 EDT by Razia Montoya
[2020-09-23] MEDS: MAGNESIUM OXIDE 400MG TAB (MAG-OX) PO SCH (09:10)
[2020-09-23] MEDS: OMEPRAZOLE 20 MG CAP PO SCH (09:10)
[2020-09-23] MEDS: LACTOBACILLUS ACIDOPHILUS CAP (BACID) PO SCH (09:10)
[2020-09-23] MEDS: GABAPENTIN 100 MG CAP PO SCH (09:10)
[2020-09-23] MEDS: ASPIRIN 81 MG CHEW TABLET PO SCH (09:10)
--- NOTE | 2020-09-23 09:13 | DS.PDOC ---
Discharge Summary General Date of Admission Sep 21, 2020 at 09:17 Date of Discharge 09/23/20 Discharge Summary Hospitalist discharge summary dictated job #[id number]. 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 Vital Signs/I&Os Vital Signs Date Time Temp Pulse Resp B/P (MAP) Pulse Ox O2 Delivery O2 Flow Rate FiO2 09/23/20 06:00 98.0 72 20 119/77 (91) 94 09/22/20 14:00 Room Air I&O- Last 24 Hours up to 6 AM 09/23/20 06:00 Intake Total 1525 ml Balance 1525 ml Laboratory Data Labs 24H Laboratory Tests 2 09/22/20 18:14: Anion Gap 3L, Glomerular Filtration Rate 43.4, Calcium Level 7.4L 09/23/20 00:03: Anion Gap 7L, Glomerular Filtration Rate 48.3, Calcium Level 7.4L 09/23/20 05:56: Anion Gap 4L, Glomerular Filtration Rate 49.3, Calcium Level 7.5L, Nucleated Red Blood Cells % (auto) 0.0, Magnesium Level 2.0 CBC/BMP Laboratory Tests 09/22/20 18:14 09/23/20 00:03 09/23/20 05:56 Microbiology Microbiology 09/21/20 Gastrointestinal Tract Panel (PCR) - Final, Complete 09/21/20 Urine Culture - Final, Complete Discharge Medications Scheduled Amlodipine Besylate (Amlodipine Besylate) 5 Mg Tablet, 5 MG PO DAILY, (Reported) Aspirin (Aspirin) 81 Mg Chw, 81 MG PO DAILY, (Reported) Diphenoxylate HCl/Atropine (Diphenoxylate-Atrop 2.5-0.025) 1 Each Tablet, 1 EA PO ACHS Gabapentin (Gabapentin) 100 Mg Capsule, 100 MG PO TID, (Reported) L.acidoph/L.bulg/B.bif/S.therm (Jennifer-Bid Caplet) 1 Each Tablet, 1 EA PO WM Lisinopril (Lisinopril) 20 Mg Tablet, 20 MG PO DAILY, (Reported) Metoprolol Tartrate (Metoprolol Tartrate) 25 Mg Tab, 12.5 MG PO DAILY, (Reported) Omeprazole (Omeprazole) 20 Mg Tablet.dr, 20 MG PO BID, (Reported) Simvastatin (Zocor) 40 Mg Tab, 40 MG PO QHS, (Reported) Scheduled PRN Clonazepam (Clonazepam) 0.5 Mg Tablet, 0.5 MG PO BID PRN for ANXIETY, (Reported) Methocarbamol (Methocarbamol) 500 Mg Tablet, 500 MG PO TID PRN for SPASMS, (Repo rted) Ondansetron HCl (Ondansetron HCl) 4 Mg Tablet, 4 MG PO Q6H PRN for nausea /vomiting, (Reported) Tizanidine HCl (Tizanidine HCl) 2 Mg Capsule, 2 MG PO QHS PRN for INSOMNIA, (Reported) Allergies Coded Allergies: No Known Allergies (Unverified , 02/20/19) LÓPEZ HU MD Sep 23, 2020 09:05
--- NOTE | 2020-09-24 10:09 | DSES ---
DISCHARGE SUMMARY DATE OF ADMISSION: 09/21/2020 DATE OF DISCHARGE: 09/23/2020 DISCHARGE DIAGNOSES: 1. Chronic diarrhea since 2018. 2. Weight loss since 2018. 3. Acute on chronic kidney disease stage III. 4. Chronic left bundle branch block. 5. History of coronary artery disease (CAD), coronary artery bypass graft (CABG), coronary stents times nine. 6. Sinus node dysfunction with pacemaker. 7. Hypothyroidism. 8. Hypertension. DISCHARGE MEDICATIONS: - Lomotil one in the morning and at bedtime, hold for constipation - Bacid one tablet with meals - amlodipine 5 mg daily - aspirin 81 mg daily - clonazepam 0.5 mg twice a day as needed for anxiety - gabapentin 100 mg three times a day - lisinopril 20 mg daily - methocarbamol 500 mg three times a day as needed - metoprolol 12.5 mg daily - omeprazole 20 mg twice a day - Zofran 4 mg every 6 hours as needed - Zocor 40 mg at bedtime - tizanidine 2 mg at bedtime as needed DISCHARGE INSTRUCTIONS: Patient is to be referred to kelp or seagrass gatherer, either Dr. Coon, Dr. Chauhan or Dr. Ray, by primary care physician in order to further evaluate her chronic diarrhea. Primary care physician followup within five days of hospital discharge. Patient can call the GI office to see if referral can be made for immediate followup. HOSPITAL COURSE: This is an 89-year-old female, presented to the emergency room with complaints of persistent explosive diarrhea, intractable nausea, vomiting for two days. Patient had a similar episode in 2018 with prior esophagogastroduodenoscopy (EGD)/colonoscopy which was negative, but no followup since then. She had a 15 pound weight loss for the past three weeks and presented due to vomiting at home. In the emergency room, she was hypotensive, systolic pressure of 98, given 2 liters of intravenous fluids, improved to 119 systolic. Creatinine was 1.57. She was hyperkalemic with potassium of 5.2. CT abdomen and pelvis, CT chest were all negative. Patient was given IV fluids, Kayexalate with improvement in potassium. Patient's creatinine improved to baseline of 1.1 without fluid overload. Patient had three bowel movements during the first night and was given Lomotil after GI panel obtained was negative for any infectious diarrhea. Patient was instructed to follow up with her primary care physician within five days of hospital discharge and to have a gastroenterology referral for followup and further evaluation of her chronic diarrhea. Aside from the GI panel, inflammatory bowel disease (IBD) panel and celiac sprue panel have been sent, the results of which are still pending. Patient is Coronavirus negative. She is to be evaluated as outpatient with repeat colonoscopy/EGD due to persistent weight loss due to on and off diarrhea for the past three years. PHYSICAL EXAMINATION ON DISCHARGE: Temperature 98, pulse 72, respiratory rate 20, blood pressure 119/77, 94% on room air. GENERAL: Patient is awake, alert, oriented times three, answering questions appropriately. HEENT: No jugular venous distention (JVD). No thyromegaly. No cervical lymphadenopathy. LUNGS: Clear to auscultation. No wheezing, rales or rhonchi. HEART: S1, S2. Sinus rhythm. ABDOMEN: Soft, nontender, nondistended. Positive bowel sounds all four quadrants. No costovertebral angle (CVA) tenderness. EXTREMITIES: No clubbing, cyanosis or any pitting edema. LABORATORY DATA ON DISCHARGE: Coronavirus-19 negative. Respiratory panel negative. IBD serology pending. Celiac sprue serology pending. White count 5.7, hemoglobin 9.8, hematocrit 31, platelet count 297. Sodium 144, potassium 4, chloride 116, bicarbonate 24, BUN 13, creatinine 1.11. IMAGING STUDIES: CT abdomen and pelvis: Unchanged bowel mesentery unremarkable except for duodenal diverticulum. Abdominal aortic aneurysm is unchanged. No lymphadenopathy, mass, ascites. No evidence of bowel obstruction. Chest CT 09/21/2020: Stable left ventricular cardiac aneurysm. No pulmonary nodules. No acute infiltrate. No lymph node involvement. Sternotomy wires and bypass graft. Dual chamber pacemaker. TIME SPENT ON DISCHARGE: Thirty minutes. [facility]
[2020-09-25 16:08] LABS: ANTINUCLEAR ANTIBODIES DIRECT Negative (Negative); Chitobioside Carbohydrat (ACCA 97 units (0-90); Laminaribioside Carbohyd (ALCA 37 units (0-60); Mannobioside Carbohydrat (AMCA 78 units (0-100); Saccharomyces cerevisiae IgG A 13 units (0-50)
== END 2020-09-23 10:28 | disposition home or self-care (01) ==
LOC: M ED 09:16 → M ED INP 09:17 → M MSPAV 16:48
PROVIDERS: ADMIT General Practice; ATTEND General Practice
DX: N17.8 Other acute kidney failure (principal); R19.7 Diarrhea, unspecified; N18.30 Chronic kidney disease, stage 3 unspecified; R11.2 Nausea with vomiting, unspecified; R63.4 Abnormal weight loss; E87.5 Hyperkalemia; E83.42 Hypomagnesemia; R10.9 Unspecified abdominal pain; I49.5 Sick sinus syndrome; I44.7 Left bundle-branch block, unspecified; I12.9 Hypertensive chronic kidney disease with stage 1 through stage 4 chronic kidney disease, or unspecified chronic kidney disease; E03.9 Hypothyroidism, unspecified; M51.9 Unspecified thoracic, thoracolumbar and lumbosacral intervertebral disc disorder; I71.4 Abdominal aortic aneurysm, without rupture; Z95.1 Presence of aortocoronary bypass graft; Z95.0 Presence of cardiac pacemaker; Z90.49 Acquired absence of other specified parts of digestive tract; Z95.5 Presence of coronary angioplasty implant and graft; Z87.891 Personal history of nicotine dependence; Z66 Do not resuscitate
CPT/HCPCS: 36415; 71045; 71250; 74176; 80048; 80076; 81001; 82550; 82553; 83516; 83605; 83735; 83880; 84484; 85025; 85027; 85652; 86038; 86140; 86255; 87086; 87505; 87631; 93005; 96361; 96374; 96375; 96376; 97161; 99285; G0378; J0696; J2405; J3475

== ENCOUNTER → 2020-10-02 | Outpatient (CLI) | payer MEDICARE, OTHER ==
[~2020-10-02] MED LIST changes: +AMLO1TAB24 PO; +DIPH2.5T15 PO; +LISI20TA33 PO; +MAGN400T2 PO; +RISATAB3 PO
--- NOTE | 2020-10-02 16:16 | REPVR ---
PROCEDURE INFORMATION: Exam: CT Lumbar Spine Without Contrast Exam date and time: 10/02/2020 3:26 PM Age: 89 years old Clinical indication: Low back pain; Additional info: Other spondylosis lumbar region TECHNIQUE: Imaging protocol: Computed tomography images of the lumbar spine without contrast. Radiation optimization: All CT scans at this facility use at least one of these dose optimization techniques: automated exposure control; mA and/or kV adjustment per patient size (includes targeted exams where dose is matched to clinical indication); or iterative reconstruction. COMPARISON: CT Spine, lumbar w/o contrast 04/09/2018 10:20 AM FINDINGS: L2-L3: There is mild broad-based disc protrusion. L3-L4: There is moderate broad-based disc protrusion and with facet hypertrophy all producing severe central spinal canal stenosis. L4-L5: There is moderate broad-based disc protrusion and with facet hypertrophy all producing severe central spinal canal stenosis. L5-S1: There is moderate broad-based disc protrusion and facet hypertrophy all producing severe central spinal canal stenosis. Is all very similar to 2018 exam Lungs: Mild atelectasis at the right posterior gutter region. Vasculature: There is aneurysmal dilatation of the lower abdominal aorta measuring 3.9 cm in transverse dimension and increasing by 2 mm since the examination of 2018. Soft tissues: Unremarkable. IMPRESSION: The L5-S1, and L4-L5 level demonstrates severe central spinal canal stenosis. Electronically signed by: Kvng Barrow On 10/02/2020 16:16:38 PM
== END ==
LOC: M RAD 15:11
PROVIDERS: ATTEND Physician Assistant
DX: M47.896 Other spondylosis, lumbar region (principal); M48.061 Spinal stenosis, lumbar region without neurogenic claudication; M48.07 Spinal stenosis, lumbosacral region